=== PATIENT | female | born 1980 | race Caucasian/White ===

== ENCOUNTER 2023-06-30 17:13 | Emergency (ER) | payer MEDICAID, SELFPAY ==
[2023-06-30 17:14] VITALS: BP 109/91; PULSE 89; RESP 18; TEMP 36.7; O2SAT 100; BMI 23.6
--- NOTE | 2023-06-30 17:25 | US_ITS ---
STUDY: ABDOMINAL ULTRASOUND - RIGHT UPPER QUADRANT REASON FOR VISIT: Female, 42 years old PAIN abd TECHNIQUE: Ultrasound evaluation of the right upper quadrant was performed with real-time and static ram-scale imaging. TECHNICAL QUALITY: Limited. Examination limited by bowel gas. COMPARISON: None. FINDINGS: Liver: The liver measures 16.4 cm. There is normal echogenicity of the liver. The bile ducts are within normal limits. There is hepatic color flow. The direction of portal flow is hepatopetal. There is no demonstrated mass lesion. Gallbladder: Normal distended gallbladder. The gallbladder wall measures 7.0 mm in the region of the neck. There is a negative sonographic Hwang''s sign. Trace pericholecystic fluid. There are no gallstones. Small echogenic structure, nonmobile seen along the gallbladder wall measuring 3 mm suggestive of a polyp. Common Bile Duct (C.B.D.): The common bile duct measures 4.0 mm. Pancreas: Normal size of the head, body and tail of the pancreas. There is normal echogenicity of the pancreas. There is no demonstrated pancreatic mass or cyst. Right Kidney: Normal size of the right kidney. The right kidney measures 10.3 x 4.4 x 4.2 cm. Normal renal cortex. The right cortex measures 1.7 cm. There is no demonstrated renal mass or cyst. There is no right hydronephrosis. US/Gallbladder IMPRESSION: Thickening of gallbladder wall with trace pericholecystic fluid and negative Hwang sign, cannot exclude acalculous cholecystitis. Differential diagnosis includes liver disease or hypervolemic state such as congestive heart failure. If cholecystitis represents a clinical concern, recommend follow-up with HIDA scan. Remainder of the right upper quadrant ultrasound unremarkable. Electronically Signed: Dea Joshua MD at 19:18 [facility] ,
--- NOTE | 2023-06-30 17:26 | ED.VIS.GI ---
HPI HPI - GI History of Present Illness Chief Complaint: Abd Pain Informant: patient Narrative Narrative: Persistent epigastric comfort over last couple days. States been nauseated for the last couple weeks. No diarrhea. Normal bowel movements. No vomiting. 2 years ago reported gastric ulcer diagnosed with endoscopy. There is no bleeding issues then. She not on scheduled PPI. However last couple days tried Prilosec and Pepcid with no relief. She reports did have quiroga at noon with no worsening symptoms. Appendectomy when she was younger. No urinary symptoms. She is on the Depo shot therefore unclear on menstrual period. She states she is not sexually active therefore cannot be . Denies fever or chills. Prior similar symptoms: No PFSH PFSH Home Medications buprenorphine 12 mg-naloxone 3 mg sublingual film (Suboxone) 12 ea sublingual DAILY 09/10/16 [History Last Taken Unknown] naproxen 500 mg tablet 500 mg PO BID PRN #20 tabs 09/10/16 [Rx Last Taken Unknown] pantoprazole 40 mg tablet,delayed release 40 mg PO DAILY #30 tabs 06/30/23 [Rx Last Taken Unknown] sucralfate 1 gram tablet (Carafate) 1 g PO Q6H #60 tabs 06/30/23 [Rx Last Taken Unknown] Allergy/AdvReac Type Severity Reaction Status Date / Time No Known Allergies Allergy Verified 06/30/23 17:14 Surgical History (Updated 06/30/23 @ 17:42 by Leola Mccain) History of appendectomy Social History Smoking Status: Former smoker ROS ROS ED Constitutional Constitutional ED: Denies chills, fever(s) or sweats Eyes Eyes: Denies change in vision ENT ENT ED: Denies dysphagia or sore throat Cardiovascular Cardiovascular: Denies chest pain, leg edema, palpitations or racing heartbeat Respiratory/Chest Respiratory/Chest: Denies cough, dyspnea or dyspnea on exertion Gastrointestinal Gastrointestinal: Reports abdominal pain and nausea; Denies diarrhea or vomiting Genitourinary Genitourinary ED: Denies dysuria, hematuria or urinary frequency Musculoskeletal Musculoskeletal: Denies back pain, extremity pain or neck pain Integumentary Denies rash or wounds Neurologic Neurologic: Denies headache(s), paresthesias or weakness EXAM Physical Exam Const Vital Signs: 06/30/23 17:14 Temperature 98.1 F Temperature Source Temporal Pulse Rate 89 Respiratory Rate 18 Blood Pressure 109/91 H Blood Pressure Mean 97 Pulse Ox 100 Oxygen Delivery Method Room Air Positive well nourished and well developed General Appearance ED: well developed and NAD HEENT Reports moist mucous membranes normocephalic and atraumatic Eyes PERRL, EOMs intact bilaterally and conjunctivae normal General Eye ED: Yes normal appearance of both eyes Neck no lymphadenopathy and supple General: Negative for tenderness Chest Wall Chest: Negative for tenderness Resp normal respiratory effort and normal air movement Effort and Inspection: symmetric chest movement; Negative for respiratory distress Cardio regular rate, regular rhythm and no murmurs Peripheral Pulses: pulses 2+ throughout GI normal to inspection, nondistended, normoactive bowel sounds GI Narrative: Tenderness epigastric to right upper quadrant on exam. No guarding or rebound. Palpation: Negative for guarding or rebound tenderness present Back/Spine no CVA tenderness and no thoracic nor lumbar tenderness Extremity normal to inspection General Extremety ED: Negative for edema or tenderness General Extremity: Negative for edema Neuro oriented x3 and no sensory deficits noted Sensorium / Orientation: awake and alert Skin no rashes or lesions noted and no wounds MDM MDM MDM Narrative Medical decision making narrative: Interventions / MDM: Differential diagnosis: Gastritis Diagnosis considered but do not suspect: No clinical cholecystitis My EKG interpretation: N/A Imaging independently reviewed and interpreted by myself: Right upper quadrant ultrasound: Per radiology, small polyp, slight thickened gallbladder trace pericholecystic fluid negative sonographic signs. External documents reviewed: N/A Test considered but not ordered:N/A ED course: Nontoxic tenderness epigastrium to right upper quadrant. Abdominal labs ordered fluids Pepcid and Zofran IV. Will order right upper quadrant ultrasound for further evaluation. Reevaluation pending ultrasound results symptoms were starting to improve. Her labs normal normal recently signs. Added a GI cocktail. 1930: GI cocktail did improve symptoms. No right upper quadrant tenderness on reevaluation. Ultrasound reports slight thickened gallbladder small polyp with trace pericholecystic fluid. Clinically history does not appear for acute cholecystitis. She is able to eat quiroga yesterday with no flare of symptoms. She has history of gastric ulcers and gastritis. Will add Carafate and pantoprazole. Discussed monitoring diet but she would dairy foods and fatty foods if it flares up. She will be referred to general surgeon outpatient with strict return precautions. All questions were answered. Re-evaluation: stable Disposition discussed with patient/family/significant other: Patient Case discussed with consulting clinician: N/A This note was generated with [employer] dictation software. It may contain incorrect words, spelling, and punctuation that were not noted in checking the note before signing. Lab Data Attestation: I reviewed the patient's lab results. Labs: Laboratory Results - last 24 hr 06/30/23 17:40 WBC 7.0 RBC 3.91 L Hgb 12.0 Hct 36.2 L MCV 92.6 MCH 30.7 MCHC 33.1 RDW Std Deviation 42.3 RDW Coeff of Carol Ann 12.4 Plt Count 235 MPV 12.1 H Immature Gran % (Auto) 0.400 Neut % (Auto) 67.6 Lymph % (Auto) 23.0 [place] % (Auto) 5.7 Eos % (Auto) 2.7 Baso % (Auto) 0.6 Absolute Neuts (auto) 4.7 Absolute Lymphs (auto) 1.61 Nucleated RBC % 0 Sodium 143 Potassium 3.3 L Chloride 112 H Carbon Dioxide 27.0 Anion Gap 4 L BUN 5 L Creatinine 0.93 Estim Creat Clear Calc 60.68 Est GFR (MDRD) Af Amer 86 Est GFR (MDRD) Non-Af 71 BUN/Creatinine Ratio 5.4 L Glucose 99 Calcium 8.7 Total Bilirubin 0.20 Direct Bilirubin 0.09 AST 12 L ALT 15 Alkaline Phosphatase 58 Total Protein 6.5 Albumin 2.8 L Globulin 3.7 Lipase 24 Serum , Qual NEGATIVE Radiography Diagnostic Testing: Clinical Impression(s) from Imaging Studies Gallbladder Ultrasound 06/30/23 17:25 IMPRESSION: Thickening of gallbladder wall with trace pericholecystic fluid and negative Hwang sign, cannot exclude acalculous cholecystitis. Differential diagnosis includes liver disease or hypervolemic state such as congestive heart failure. If cholecystitis represents a clinical concern, recommend follow-up with HIDA scan. Remainder of the right upper quadrant ultrasound unremarkable. Electronically Signed: Dae Joshua MD at 19:18 EST , Discharge Plan Triage Chief Complaint: Abd Pain ED Provider: Oseas Trent Dx/Rx/DC Orders Clinical Impression: Thickening of wall of gallbladder with pericholecystic fluid, Gastritis Instructions: ED Gastritis (Adult) Prescriptions: New sucralfate [Carafate] 1 gram tablet 1 g PO Q6H Qty: 60 0RF pantoprazole 40 mg tablet,delayed release (DR/EC) 40 mg PO DAILY Qty: 30 0RF No Action buprenorphine-naloxone [Suboxone] 1 EACH film 12 ea sublingual DAILY naproxen 500 MG tablet 500 mg PO BID PRN Qty: 20 0RF Primary Care Provider: Care Physician,No Primary Referrals: Zane Eaton MD [Med Staff - Active Staff] - 1-2 Weeks Care Physician,No Primary [Primary Care Provider] - Activity Restrictions/Additional Instructions: Gallbladder ultrasound slightly thickened, there was trace pericholecystic fluid. Small polyp 3 mm. Your labs are stable white count normal. Normal liver enzymes and lipase. Take GI medicines as prescribed. Follow-up with Dr. Eaton for outpatient evaluation. Monitor your diet if symptoms worsen with fatty foods, greasy foods or dairy foods, discussed could develop into gallbladder issues. Return to ED for evaluation of any symptoms worsen uncontrolled with your medications. Disposition Disposition: Home, Self Care
[2023-06-30] MEDS: Famotidine 200 MG/20 ML MDV 20 MG in 0.9% Normal Saline (Pres. free 8 ML 300 MG IV (17:39)
[2023-06-30] MEDS: 0.9% Normal Saline (1000mL) 1,000 ML 1000 ML IV (17:39)
[2023-06-30] MEDS: Ondansetron 4 MG/2 ML Vial IV (17:40)
[2023-06-30 17:49] LABS: Absolute Lymphocyte Count 1.61 X10^3/uL (0.83-4.51); Absolute Neutrophil Count 4.7 X10^3/uL (2.0-7.7); Basophil# 0.04 X10^3/uL; Basophil% 0.6 % (0-1); Eosinophil# 0.19 X10^3/uL; Eosinophils% 2.7 % (0-5); Hematocrit 36.2 % (37-47); Lymphocyte # 1.61 X10^3/ul (0.83-4.51); Mean Corp Hgb Conc 33.1 g/dL (32-36); Mean Corpuscular Hgb 30.7 pg (27.0-32.0); Mean Corpuscular Volume 92.6 fL (81-99); Mean Platelet Vol. 12.1 fl (6.2-12.0); Monocyte% 5.7 % (0-10); NRBC Flagged by Analyzer 0 % (0-5); Neutrophil # 4.73 X10^3/uL (2.7-7.7); Neutrophil % 67.6 % (47-70); Platelet Count 235 K/mm3 (150-450); RBC Distribution Width CV 12.4 % (11.6-14.6); RBC Distribution Width SD 42.3 fl (35.1-43.9); Red Blood Count 3.91 M/mm3 (4.2-5.4)
[2023-06-30 18:00] LABS: Internal QC Validated? YES +Cl - CLEAR BKGD; Pregnancy, Serum, hCG Quali. NEGATIVE Negative
[2023-06-30 18:08] LABS: AST(SGOT) 12 U/L (15-37); Alanine Aminotransfer ALT/SGPT 15 U/L (13-56); Albumin, Serum 2.8 g/dL (3.2-5.0); Alkaline Phosphatase 58 U/L (45-117); Anion Gap 4 (5-15); BUN 5 mg/dL (7-18); BUN/Creat Ratio 5.4 RATIO (10-20); Bilirubin, Direct 0.09 mg/dL (0.00-0.30); Calcium,Total 8.7 mg/dL (8.5-10.1); Chloride 112 mmol/L (98-107); Creatinine, Serum 0.93 mg/dL (0.55-1.02); EST Glomerular Filtration Rate 71 mL/min (>60); Est Glom Filt Rate - Afr Amer 86 mL/min (>60); Estimated Creatinine Clearance 60.68 ml/min; Globulin 3.7 g/dL (2.2-4.2); Glucose 99 mg/dL (74-106); Lipase 24 U/L (13-75); Potassium 3.3 mmol/L (3.5-5.1); Protein, Total 6.5 g/dL (6.4-8.2); Sodium Level 143 mmol/L (136-145)
[2023-06-30] MEDS: Mag Hydrox/Al Hydrox/Simeth 30 ML UDC PO (18:57)
== END 2023-06-30 19:54 | disposition home or self-care (01) ==
PROVIDERS: Emergency Provider Emergency Medicine; Visit Provider Emergency Medicine
DX: K82.8 Other specified diseases of gallbladder (principal); K29.70 Gastritis, unspecified, without bleeding; Z87.891 Personal history of nicotine dependence
CPT/HCPCS: 76705; 80048; 80076; 83690; 84703; 85025; 96361; 96374; 96375; 99283; J2405; J3490 ×2; J7030

== ENCOUNTER 2023-07-01 12:48 | Observation (INO) | payer MEDICAID, SELFPAY ==
[2023-07-01 12:49] VITALS: BP 115/74; PULSE 65; RESP 14; TEMP 36.2; O2SAT 98; BMI 23.6
--- OUTSIDE RECORDS SUMMARY | 2023-07-01 13:59 | XMS RPT_ITS | CCD ---
Author Name Unknown Address [facility] [id number] [place] [address] Organization [facility] Care Team Providers Care Associate Material Handler Name Role Phone DUANE GOYAL DO Attending Unavailab HUMBERTO Ellis Primary Care Unavailable DR HUMBERTO GOLDBERG DO Primary Care Physician ([id number] Medications Current Medications Medication Drug Class(es) Dates Sig (Normalized) Sig (Original) acyclovir 400 mg oral tablet (1 source) Herpesvirus Nucleoside Analog DNA Polymerase Inhibitor, Herpes Simplex Virus Nucleoside Analog DNA Polymerase Inhibitor, Herpes Zoster Virus Nucleoside Analog DNA Polymerase Inhibitor Start: 09-29-2019 acyclovir 400 mg oral tablet Dose : 400 mg = 1 tab(s), Oral, BID, Pt needs appointment for further refills., # 60 tab(s), 0 Refill(s), [facility]: [facility], Recurrent cold sores, 159, cm, 08/16/19 14:09:00 EST, Height, kg, 08/16/19 14:09:00 EST, Dosing Weight Start Date: 09/29/19 Status: Ordered buprenorphine 2 mg / naloxone 0.5 mg sublingual film (1 source) Partial Opioid Agonist, Opioid Antagonist Start: 06-01-2019 Suboxone 2 mg-0.[address] ONE film ON THE TONGUE everyday Start Date: 06/01/19 Status: Ordered Completed/Discontinued Medications Medication Drug Class(es) Dates Sig (Normalized) Sig (Original) Depo-Provera Contraceptive 150 mg/mL intramuscular suspension (1 source) Start: 12-02-2021 inject 1 mL by intramuscular injection every three months Depo-Provera Contraceptive 150 mg/mL intramuscular suspension Dose : 150 mg = 1 mL, Intramuscular, q3mo, # 1 mL, 0 Refill(s) Start Date: 12/02/21 Status: Ordered famotidine 20 mg oral tablet (1 source) Histamine-2 Receptor Antagonist Start: 12-02-2021 End: 01-01-2022 Pepcid 20 mg oral tablet Dose : 20 mg = 1 tab(s), Oral, BID, # 60 tab(s), 0 Refill(s), [facility]: [facility] 160, cm, 12/02/21 14:35:00 EDT, Height Start Date: 12/02/21 Stop Date: 01/01/22 Status: Ordered omeprazole 40 mg delayed release oral capsule (1 source) Proton Pump Inhibitor Start: 06-11-2022 End: 09-09-2022 omeprazole 40 mg oral delayed release capsule Dose : 40 mg = 1 cap(s), Oral, qDay, # 90 cap(s), 0 Refill(s), [facility]: [facility] #[id number], 155, cm, 06/11/22 16:21:00 EST, Height, kg, 06/11/22 16:21:00 EST, Dosing Weight Start Date: 06/11/22 Stop Date: 09/09/22 Status: Ordered sucralfate 1000 mg oral tablet (1 source) Aluminum Complex Start: 06-11-2022 End: 08-10-2022 sucralfate 1 g oral tablet Dose : 1 gram(s) = 1 tab(s), Oral, QID, # 120 tab(s), 1 Refill(s), Pharmacy: [id number], Epigastric abdominal pain History of gastric ulcer, 155, cm, 06/11/22 16:21:00 EST, Height Start Date: 06/11/22 Stop Date: 08/10/22 Status: Ordered Problems Problem Classification Problem Date Documented Da te Episodic/Chronic Abdominal pain (1 source) Epigastric pain 09-28-2020 Episodic Esophageal disorders (1 source) Gastroesophageal reflux disease 09-28-2020 Chronic Other infections; including parasitic (1 source) History of sexually transmitted disease 09-28-2020 Episodic Substance-related disorders (1 source) History of drug abuse 09-28-2020 Chronic Viral infection (1 source) Herpes labialis 09-28-2020 Episodic Results Test Name Value Interpretation Reference Range Facil ity Encounters Encounter Date Encounter Type Care Provider Facility Start: 06-30-2023 End: 06-30-2023 Patient encounter procedure DUANEMARTHA GOYAL DO [facility] Start: 05-19-2023 ambulatory DUANE GOYAL DO F acility:B Procedures Date Procedure Procedure Detail Performing Clinician Appendectomy DUANE Figueredo DO Deliveries by (finding) DUANE GOYAL DO Payers Date Payer Category Payer Private Health Insurance [id number] 1980 Unknown [id number] Social History Date Type Detail Facility Start: 06-11-2022 Tobacco smoking status Ex-smoker (fi nding) [facility] Sex Assigned At Female [facility] Clinical Note 06-30-2023 Note Date & Type Note Facility 06-30-2023 Note ORIGINAL EXAMINATION: BONE DENSITOMETRY 06/30/2023 11:29 am TECHNIQUE: A bone density dual x-ray absorptiometry (DEXA) scan was performed of the lumbar spine and left hip on a Hologic system. COMPARISON: None. HISTORY: ORDERING SYSTEM PROVIDED HISTORY: Reason for Exam: SCREENING FINDINGS: LEFT HIP: The bone mineral density in the total hip is measured at 0.747 g/cm2 corresponding to a T-score of -1.6 and a Z-score of -1.4. This is within the below average/osteopenic range by WHO criteria. The bone mineral density of the femoral neck is measured at 0.610 g/cm2 corresponding to a T-score of -2.2 and a Z-score of -1.8. This is within the below average/osteopenic range by WHO criteria. Lumbar spine: The bone mineral density of the left 1/3 radius is measured at 0.768 g/cm2 corresponding to a T-score of -2.5 and a Z-score of -2.3. This is within the below average/osteoporotic range by WHO criteria. IMPRESSION: Below age expected average bone density/osteoporosis by WHO criteria. Interpreted by: Alycia Foster Preliminary Report By: Alycia Foster Electronically signed By Alycia Foster Dictated Date: 06/30/2023 12:00:21 PM Prelim Date: 06/30/2023 12:03:24 PM Sign Date: 06/30/2023 12:03:24 PM Ordering Provider: DUANE GOYAL [facility] Clinical Note 11-20-2020 Note Date & Type Note Facility 11-20-2020 Note HNO ID: [id number] Author: Adela Self RN Service: Gastroenterology Author Type: Registered Nurse Type: Nursing Progress Note Filed: 11/20/2020 7:43 AM Note Text: Patient states readiness for discharge. Assisted with dressing. [facility] Clinical Note 11-20-2020 Note Date & Type Note Facility 11-20-2020 Note HNO ID: [id number] Author: Adela Self RN Service: Gastroenterology Author Type: Registered Nurse Type: Nursing Progress Note Filed: 11/20/2020 7:42 AM Note Text: Discharge instructions reviewed with patient. States understanding [facility] Clinical Note 11-20-2020 Note Date & Type Note Facility 11-20-2020 Note HNO ID: [id number] Author: Adela Self RN Service: Gastroenterology Author Type: Registered Nurse Type: Nursing Progress Note Filed: 11/20/2020 8:11 AM Note Text: Physician at bedside [facility] Progress note 10-26-2020 Note Date & Type Note Facility 10-26-2020 Note HNO ID: [id number] Author: Sadaf Looney (Pa) Service: ? Author Type: Physician Towel Rolling Machine Operator Type: Progress Notes Filed: 10/26/2020 2:51 PM Note Text: HPI: Radha Silveira is a 40 year old female with PMHx positive for IBS, depression, who presents for GERD and Abdominal Pain. Has had GERD symptoms for the past year, been on Prilosec 20 mg for the past year. Recently increased dosage and has noticed some improvement and still having symptoms. Takes ibuprofen a few times per week . Takes it early in the morning to try to alleviate abdominal pain. Epigastric pain is intermittent, worse when sleeping or overeating. Admits to chronic constipation for many years . BMs are one every three days, hard, no blood. Takes MoM with some relief. Denies family hx of colon CA Works at [employer] Has 5 tattoos, one unprofessional, tested for Hep C in the past and was negative Rare EtOH Former smoker Denies illicit drugs Record Review: [facility] records reviewed PAST MEDICAL HISTORY Diagnosis Date - Depressive disorder, not elsewhere classified - Diarrhea - Irritable bowel syndrome - Other and unspecified disc disorder of unspecified region Intervertebral disc disorders,BULDGING DISC - PMH - PAST MEDICAL HISTORY OF 12/17 bacterial infection in eye PAST SURGICAL HISTORY Procedure Laterality Date - APPENDECTOMY 1994 - DELIVERY ONLY 2002 , low cervical - DELIVERY ONLY 2005 , low cervical Allergies: ALLERGIES Allergen Reactions - Seasonal [Other] Medications: buprenorphine-naloxone (SUBOXONE) 2-0.5 mg film DISSOLVE ONE fild UNDER THE TONGUE EVERY DAY omeprazole (PRILOSEC) 40 mg capsule Take 40 mg by mouth once daily. valacyclovir HCl (VALTREX ORAL) Take by mouth. medroxyprogesterone acet(DEPO-PROVERA 150 MG/ML IM SUSP) Use as directed. FAMILY HISTORY Problem Relation Age of Onset - Cancer Father LUNG - Alcohol/Drug Maternal Grandmother ALCOHOLIC - Cancer Paternal Grandmother - Colon Cancer No Family History Employer And Job Title: [employer] ([employer]) Years Of Education Completed: Not specified Marital Status: with 1 child Social History Tobacco Use - Smoking status: Former Smoker Packs/day: 0.50 Years: 5.00 Pack years: 2.50 Types: Cigarettes - Smokeless tobacco: Never Used Substance Use Topics - Alcohol use: Not on file Comment: RARELY BUT NOT WHILE - Drug use: Never Review of Systems: Review of Systems Constitutional: Negative for chills, diaphoresis, fatigue, fever and unexpected weight change. Gastrointestinal: Positive for abdominal distention, abdominal pain and constipation. Negative for anal bleeding, blood in stool, diarrhea, nausea, rectal pain and vomiting. All other systems reviewed and are negative. Where do you currently reside? Independently Are you taking any blood thinners? No Physical Examination: BP 102/60 Pulse 68 Ht 156.2 cm (5' 1.5 ) Wt 64.4 kg (142 lb) BMI 26.40 kg/m? Physical Exam Constitutional: General: She is not in acute distress. Appearance: She is not diaphoretic. HENT: Head: Normocephalic and atraumatic. Eyes: Conjunctiva/sclera: Conjunctivae normal. Pupils: Pupils are equal, round, and reactive to light. Cardiovascular: Rate and Rhythm: Normal rate and regular rhythm. Heart sounds: Normal heart sounds. No murmur heard. No friction rub. No gallop. Pulmonary: Effort: Pulmonary effort is normal. No respiratory distress. Breath sounds: Normal breath sounds. No wheezing or rales. Chest: Chest wall: No tenderness. Abdominal: General: Bowel sounds are normal. There is no distension. Palpations: Abdomen is soft. There is no mass. Tenderness: There is no abdominal tenderness. There is no guarding or rebound. Musculoskeletal: General: Normal range of motion. Cervical back: Normal range of motion and neck supple. Skin: General: Skin is warm and dry. Neurological: Mental Status: She is alert and oriented to person, place, and time. Psychiatric: Mood and Affect: Mood and affect normal. Assessment/Plan (K21.9) Gastroesophageal reflux disease, unspecified whether esophagitis present (primary encounter diagnosis) (K58.1) Irritable bowel syndrome with constipation 1. Gastroesophageal reflux disease, unspecified whether esophagitis present - EGD; Future - Discussed NSAID cessation and reflux precautions in detail - Will plan on continuing Prilosec daily for now, but may need change in PPI/meds after bx findings from EGD - EGD to r/o PUD, H. Pylori, uncontrolled GERD, metaplasia Recommend high protein, high fiber diet. Promotion of salivation through oral lozenges/chewing gum Drink plenty of water Avoid NSAIDs (such as Advil, Ibuprofen, Excedrin, Mobic), tobacco, alcohol, carbonated beverages, caffeine, chocolate, tomato based sauces, spicy/fatty foods, and peppermint Avoid eating less zak (more content not included)... [facility] Evaluation + Plan note Note Date & Type Note Facility Evaluation + Plan note Future Appointments Appointment Date:07/07/2023 02:00:00 PM Scheduled Provider:WHITNEY SANTANA Location:[facility] Appointment Type:[facility] Hospital course Narrative Note Date & Type Note Facility Hospital course Narrative No data available for this section [facility] Hospital Discharge instructions Note Date & Type Note Facility Hospital Discharge instructions No data available for this section [facility] Progress note Note Date & Type Note Facility Progress note No data available for this section [facility] Summary Purpose Family History No Family History Records FoundNo Family History Records Found No data available for this section Advance Directives No Advanced Directives Records FoundNo Advanced Directives Records Found Additional Source Comments INFORMATION SOURCE (unrecogn ized section and content) DATE CREATED AUTHOR AUTHOR'S ORGANIZ ATION 05/20/2023 [facility] ([place]) Patient Care team informatio n (unrecognized section and content) Care Team Personnel Name: HUMBERTO GOLDBERG DO Position: P4 Physician - Primary Care Member Role: Primary Care Physician Address: Address: [address] [facility] [place], [place] [id number] [place] [address] Care Team Related Persons Name: STEPHY SIMPSON FOR RECORDS PERTAINING TO PATIENTS WHO ARE OR HAVE BEEN ENROLLED IN A CHEMICAL DEPENDENCY/SUBSTANCEABUSE PROGRAM, SOME INFORMATION MAY BE OMITTED. This clinical summary was aggregated from multiple sources. Caution should be exercised in using it in the provision of clinical care. This summary normalizes information from multiple sources, and as a consequence, information in this document may materially change the coding, format and clinical context of patient data. In addition, data may be omitted in some cases. CLINICAL DECISIONS SHOULD BE BASED ON THE PRIMARY CLINICAL RECORDS. [facility]. provides no warranty or guarantee of the accuracy or completeness of information in this document.
[2023-07-01] MEDS: Ketorolac 15 MG/ML Vial IV ×2 (14:08→20:47)
[2023-07-01] MEDS: Ondansetron 4 MG/2 ML Vial IV (14:09)
[2023-07-01 14:17] LABS: Absolute Lymphocyte Count 1.45 X10^3/uL (0.83-4.51); Absolute Neutrophil Count 3.8 X10^3/uL (2.0-7.7); Basophil# 0.04 X10^3/uL; Basophil% 0.7 % (0-1); Eosinophil# 0.11 X10^3/uL; Eosinophils% 1.9 % (0-5); Lymphocyte # 1.45 X10^3/ul (0.83-4.51); Lymphocyte % 25.6 % (19-41); Mean Corp Hgb Conc 34.4 g/dL (32-36); Mean Corpuscular Hgb 31.7 pg (27.0-32.0); Mean Corpuscular Volume 92.2 fL (81-99); Mean Platelet Vol. 11.6 fl (6.2-12.0); Monocyte# 0.31 X10^3/uL; Monocyte% 5.5 % (0-10); NRBC Flagged by Analyzer 0 % (0-5); Neutrophil # 3.75 X10^3/uL (2.7-7.7); Neutrophil % 66.1 % (47-70); Platelet Count 223 K/mm3 (150-450); RBC Distribution Width CV 12.4 % (11.6-14.6); RBC Distribution Width SD 41.8 fl (35.1-43.9); Red Blood Count 3.47 M/mm3 (4.2-5.4); White Blood Count 5.7 K/mm3 (4.4-11.0)
[2023-07-01 14:45] LABS: AST(SGOT) 11 U/L (15-37); Alanine Aminotransfer ALT/SGPT 14 U/L (13-56); Albumin, Serum 2.6 g/dL (3.2-5.0); Alkaline Phosphatase 51 U/L (45-117); Anion Gap 2 (5-15); BUN 4 mg/dL (7-18); BUN/Creat Ratio 5.2 RATIO (10-20); Bilirubin, Direct < 0.05 mg/dL (0.00-0.30); Calcium,Total 8.5 mg/dL (8.5-10.1); Chloride 116 mmol/L (98-107); Creatinine, Serum 0.77 mg/dL (0.55-1.02); EST Glomerular Filtration Rate 88 mL/min (>60); Est Glom Filt Rate - Afr Amer 107 mL/min (>60); Estimated Creatinine Clearance 73.29 ml/min; Globulin 3.3 g/dL (2.2-4.2); Glucose 110 mg/dL (74-106); Lipase 26 U/L (13-75); Potassium 3.7 mmol/L (3.5-5.1); Protein, Total 5.9 g/dL (6.4-8.2); Sodium Level 144 mmol/L (136-145)
--- NOTE | 2023-07-01 15:36 | CT_ITS ---
STUDY: CT ABDOMEN AND PELVIS WITH CONTRAST REASON FOR EXAM: Female, 42 years old. ruq pain RADIATION DOSAGE (If Supplied By Facility): CTDIvol = ( 10.48 ) mGy, DLP = ( 353.20 ) mGycm TECHNIQUE: Transaxial images were obtained from the dome of the diaphragm to the symphysis pubis without oral contrast. IV 100mL Isovue-370 was administered. Sagittal and coronal images were reconstructed. Individualized dose optimization techniques were used for this CT. COMPARISON: None. FINDINGS: Multinodular infiltrate in the left lower lobe.. The visualized portions of the heart are within normal limits. The liver is enlarged and slightly heterogeneous appearance with periportal fluid consistent with nonspecific hepatitis. No mass or bile duct dilatation.. There are no calcified stones in the gallbladder. There is mild pericholecystic fluid and thickening of the wall. If concern for acute cholecystitis HIDA scan would be helpful for further evaluation . Normal spleen. Normal pancreas. Normal bilateral adrenal glands. Normal right kidney. Normal left kidney. Normal visualized stomach. Normal small intestine. Normal colon. Appendix not visualized consistent with appendectomy.. Normal abdominal aorta. Normal inferior vena cava. Normal retroperitoneum. Normal urinary bladder. Small right ovarian cyst is noted. There is prominence of the pelvic vasculature bilaterally consistent with nonspecific pelvic congestive type changes. Normal abdominal wall. Normal osseous structures. CT/Abdomen/Pelvis W IV Cont ONLY IMPRESSION: Multinodular infiltrate left lower lobe possibly inflammatory. CT of the chest recommended for more definitive evaluation. Findings consistent with nonspecific hepatocellular disease or hepatitis Thick-walled gallbladder without calcified stones and mild pericholecystic fluid. If concern for acalculous cholecystitis HIDA scan with CCK stimulation recommended Electronically Signed: Cesar Gupta MD at 16:53 EST ,
--- NOTE | 2023-07-01 16:33 | ED.VIS.GI ---
HPI HPI - GI History of Present Illness Chief Complaint: Abd Pain Narrative Narrative: This is a 42-year-old female presenting with abdominal pain. She states that she has had epigastric and right upper quadrant abdominal pain for the last few days. It initially started about a week ago with some nausea and progressed. Patient does report that on Thursday she had some meatballs with marinara sauce and since that is more pain. She describes this as not typical of her GERD symptoms. She does have history of gastric ulcers and GERD. She is self treating herself right now with omeprazole since she started having the symptoms and she also uses Pepcid. Patient denies any black or bloody stools. She denies fevers or chills. She states the pain is fairly constant. She was seen yesterday in the ER and had blood work which was fairly normal and a right upper quadrant ultrasound which showed some fluid around the gallbladder but was not consistent with acute cholecystitis. Patient was given a GI cocktail in the ER and Carafate for home although she states that she now has more constant pain. The only she is has been able to eat is a cookie. She states she does not want any narcotic pain medication because she is in recovery. She states she was post to follow-up with general surgery but cannot get an appointment on the and she is concerned she will be in pain till then. PFSH PFSH Home Medications buprenorphine 12 mg-naloxone 3 mg sublingual film (Suboxone) 12 ea sublingual DAILY 09/10/16 [History Last Taken Unknown] naproxen 500 mg tablet 500 mg PO BID PRN #20 tabs 09/10/16 [Rx Last Taken Unknown] pantoprazole 40 mg tablet,delayed release 40 mg PO DAILY #30 tabs 06/30/23 [Rx Last Taken Unknown] sucralfate 1 gram tablet (Carafate) 1 g PO Q6H #60 tabs 06/30/23 [Rx Last Taken Unknown] Allergy/AdvReac Type Severity Reaction Status Date / Time No Known Allergies Allergy Verified 07/01/23 12:49 Surgical History History of appendectomy Social History Smoking Status: Former smoker ROS ROS ED Constitutional Constitutional ED: Denies chills, fever(s) or sweats Eyes Eyes: Denies blurry vision or change in vision ENT ENT ED: Denies ear pain or sore throat Cardiovascular Cardiovascular: Denies chest pain, palpitations or racing heartbeat Respiratory/Chest Respiratory/Chest: Denies cough, dyspnea or sputum Gastrointestinal Gastrointestinal: Reports abdominal pain, nausea and vomiting; Denies constipation or diarrhea Genitourinary Genitourinary ED: Denies dysuria, hematuria or urinary frequency Musculoskeletal Musculoskeletal: Denies arthralgias, myalgias or neck pain Integumentary Denies abscess, Abrasions or rash Neurologic Neurologic: Denies headache(s), paresthesias or weakness Psychiatric Psychiatric: Denies anxiety, depression, suicidal ideation or suicidal thoughts Endocrine Endocrinology: Denies polydipsia or polyuria EXAM Physical Exam Const Vital Signs: 07/01/23 12:49 Temperature 97.2 F L Temperature Source Temporal Pulse Rate 65 Respiratory Rate 14 Blood Pressure 115/74 Blood Pressure Mean 87 Pulse Ox 98 Oxygen Delivery Method Room Air Positive well nourished General Appearance ED: NAD; Negative for pallor HEENT Reports moist mucous membranes normocephalic Eyes PERRL and EOMs intact bilaterally Resp normal respiratory effort and clear to auscultation bilaterally Auscultation: Negative for rales, rhonchi or wheezes Cardio regular rate and regular rhythm GI non-tender Palpation: tender RUQ and Hwang's sign Extremity full ROM Neuro CN's II-XII intact bilaterally Sensorium / Orientation: alert Psych mental status grossly normal and thought process normal Skin no wounds General Skin Exam: Negative for jaundice or pallor MDM MDM MDM Narrative Medical decision making narrative: With epigastric and right upper quadrant pain. Differential includes acute cholecystitis, acute cholelithiasis, choledocholithiasis, GERD, gastritis, peptic ulcer disease, pancreatitis, dehydration, anemia, electro abnormalities, upper GI bleed, hepatitis. CBC was obtained to assess white blood cell count, hemoglobin, platelets. CMP to assess liver function, renal function electrolytes, glucose, anion gap. Lipase to assess for pancreatitis. Medicated with Toradol which did provide relief. CBC and CMP unremarkable. Lipase negative. Case reviewed and discussed with Dr. Boone as the patient had an ultrasound yesterday and workup. He recommended a CT with IV contrast. CT with IV contrast was performed and patient now has cholecystic fluid around the gallbladder. Concern for possible hepatitis. Gallbladder wall is thick. There is also an infiltrate noted in the left lower lobe, however the patient is not short of breath or having fevers or chills. She is not coughing. After CT was performed I discussed with Dr. Boone who recommended adding on ESR, CRP, acute hepatitis profile. She is to be kept n.p.o. after midnight. I recommended obtaining an MRCP as he can see a pancreatic duct which would normally be able to see and as well as a HIDA scan. Lab Data Attestation: I reviewed the patient's lab results. Labs: Laboratory Results - last 24 hr 07/01/23 14:10 WBC 5.7 RBC 3.47 L Hgb 11.0 L Hct 32.0 L MCV 92.2 MCH 31.7 MCHC 34.4 RDW Std Deviation 41.8 RDW Coeff of Carol Ann 12.4 Plt Count 223 MPV 11.6 Immature Gran % (Auto) 0.200 Neut % (Auto) 66.1 Lymph % (Auto) 25.6 Elmore % (Auto) 5.5 Eos % (Auto) 1.9 Baso % (Auto) 0.7 Absolute Neuts (auto) 3.8 Absolute Lymphs (auto) 1.45 Nucleated RBC % 0 Sodium 144 Potassium 3.7 Chloride 116 H Carbon Dioxide 26.0 Anion Gap 2 L BUN 4 L Creatinine 0.77 Estim Creat Clear Calc 73.29 Est GFR (MDRD) Af Amer 107 Est GFR (MDRD) Non-Af 88 BUN/Creatinine Ratio 5.2 L Glucose 110 H Calcium 8.5 Total Bilirubin 0.20 Direct Bilirubin < 0.05 AST 11 L ALT 14 Alkaline Phosphatase 51 Total Protein 5.9 L Albumin 2.6 L Globulin 3.3 Lipase 26 Radiography Diagnostic Testing: Clinical Impression(s) from Imaging Studies Abdomen/Pelvis CT 07/01/23 15:36 IMPRESSION: Multinodular infiltrate left lower lobe possibly inflammatory. CT of the chest recommended for more definitive evaluation. Findings consistent with nonspecific hepatocellular disease or hepatitis Thick-walled gallbladder without calcified stones and mild pericholecystic fluid. If concern for acalculous cholecystitis HIDA scan with CCK stimulation recommended Electronically Signed: Cesar Gupta MD at 16:53 EST , Discharge Plan Triage Chief Complaint: Abd Pain ED Provider: Tanvir Burgess Dx/Rx/DC Orders Prescriptions: No Action buprenorphine-naloxone [Suboxone] 1 EACH film 12 ea sublingual DAILY naproxen 500 MG tablet 500 mg PO BID PRN Qty: 20 0RF sucralfate [Carafate] 1 gram tablet 1 g PO Q6H Qty: 60 0RF pantoprazole 40 mg tablet,delayed release (DR/EC) 40 mg PO DAILY Qty: 30 0RF Primary Care Provider: Care Physician,No Primary Referrals: Care Physician,No Primary [Primary Care Provider] -
--- NOTE | 2023-07-01 17:08 | MRI_ITS ---
MRCP without contrast 07/01/2023 6:32 PM COMPARISON: CT same date; ultrasound 06/30/2023 CLINICAL HISTORY: RUQ pain, emesis, please compare to ultrasound TECHNIQUE: Multiplanar and multisequence MR images of the abdomen were obtained with MRCP sequence. Three-dimensional post-processing reconstructions were performed. FINDINGS: Liver: There is periportal hyperintensity on T2-weighted images and indicating periportal edema.. Smooth contour. Gallbladder: There is mild gallbladder wall edema and mild pericholecystic fluid. No obvious obstructing T2 dark stone, mass or stricture. Bile Ducts: Periportal hyperintensity on T2-weighted images. No intra or extrahepatic biliary duct dilatation. Pancreas: Unremarkable Spleen: Unremarkable Adrenal Glands: Unremarkable Kidneys: Unremarkable GI Tract: Unremarkable Lymphadenopathy: Absent Ascites: Absent Bones: No suspicious lesions MRI/MRCP Abdomen without Contrast IMPRESSION: Findings equivocal for acute acalculous cholecystitis. Consider nuclear medicine HIDA scan. Periportal edema of unknown significance. Electronically Signed: Travon Flores MD at 20:21 [facility] ,
--- NOTE | 2023-07-01 17:08 | NURSING ---
MED SURG ANALIA ABD PAIN
--- OUTSIDE RECORDS SUMMARY | 2023-07-01 17:27 | XMS RPT_ITS | CCD ---
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, cm, 08/16/19 [...] 90 cap(s), 0 Refill(s), [facility]: [facility] #[id number], 155, cm, 06/11/22 16:21:00 EST, Height, kg, 06/11/22 16:21:00 EST, Dosing Weight Start Date: 06/11/22 Stop Date: 09/09/22 Status: Ordered sucralfate 1000 mg oral tablet (1 source) Aluminum Complex Start: 06-11-2022 End: 08-10-2022 sucralfate 1 g oral tablet Dose : 1 gram(s) = 1 tab(s), Oral, QID, # 120 tab(s), 1 Refill(s), Pharmacy: [facility] #[id number], Epigastric abdominal pain History of gastric ulcer, [...] 06-30-2023 Patient encounter procedure DUANEMARTHA GOYAL DO [facility] Start: 05-19-2023 ambulatory DUANE GOYAL DO F acility:B Procedures Date Procedure Procedure Detail Performing Clinician Appendectomy DUANE Figueredo DO Deliveries by (finding) DUANE GOYAL DO Payers Date Payer Category Payer Private Health Insurance [id number] 1980 Unknown [id number] Social History Date Type Detail Facility Start: 06-11-2022 Tobacco smoking status Ex-smoker (fi nding) [facility] Sex Assigned At Female [facility] Clinical Note 06-30-2023 Note Date & Type [...] 06/30/2023 12:03:24 PM Ordering Provider: DUANE GOYAL [facility] Clinical Note 11-20-2020 Note Date & Type Note Facility 11-20-2020 Note HNO ID: [id number] Author: Adela Self RN Service: Gastroenterology Author Type: Registered Nurse Type: Nursing Progress Note Filed: 11/20/2020 7:43 AM Note Text: Patient states readiness for discharge. Assisted with dressing. [facility] Clinical Note 11-20-2020 Note Date & Type Note Facility 11-20-2020 Note HNO ID: [id number] Author: Adela Self RN Service: Gastroenterology Author Type: Registered Nurse Type: Nursing Progress Note Filed: 11/20/2020 7:42 AM Note Text: Discharge instructions reviewed with patient. States understanding [facility] Clinical Note 11-20-2020 Note Date & Type Note Facility 11-20-2020 Note HNO ID: [id number] Author: Adela Self RN Service: Gastroenterology Author Type: Registered Nurse Type: Nursing Progress Note Filed: 11/20/2020 8:11 AM Note Text: Physician at bedside [facility] Progress note 10-26-2020 Note Date & Type Note Facility 10-26-2020 Note HNO ID: [id number] Author: Sadaf Looney ([place]) Service: ? 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 [facility] Evaluation + Plan note Note Date & Type Note Facility Evaluation + Plan note Future Appointments Appointment Date:07/07/2023 02:00:00 PM Scheduled Provider:WHITNEY SANTANA Location:[facility] Appointment Type:[facility] course Narrative Note Date & Type Note Facility Hospital course Narrative No data available for this section [facility] Hospital Discharge instructions Note Date & Type Note Facility Hospital Discharge instructions No data available for this section [facility] Progress note Note Date & Type Note Facility Progress note No data available for this section [facility] Summary Purpose Family History No Family History Records FoundNo Family History Records Found No data available for this section Advance Directives No Advanced Directives Records FoundNo Advanced Directives Records Found Additional Source Comments INFORMATION SOURCE (unrecogn ized section and content) DATE CREATED AUTHOR AUTHOR'S ORGANIZ ATION 05/20/2023 [facility] ([place]) Patient Care team informatio n (unrecognized section and content) Care Team Personnel Name: HUMBERTO GOLDBERG DO Position: P4 Physician - Primary Care Member Role: Primary Care Physician Address: Address: [address] [facility] [address] [place], [place] [id number] [place] [address] Care Team Related Persons Name: STEPHY SIMPSON [...] BE BASED ON THE PRIMARY CLINICAL RECORDS. [employer] [facility]. provides no warranty or guarantee of the accuracy or completeness of information in this document.
--- OUTSIDE RECORDS SUMMARY | 2023-07-01 17:28 | XMS RPT_ITS | CCD ---
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, cm, 08/16/19 [...] 90 cap(s), 0 Refill(s), [facility]: [facility] #[id number], 155, cm, 06/11/22 16:21:00 EST, Height, kg, 06/11/22 16:21:00 EST, Dosing Weight Start Date: 06/11/22 Stop Date: 09/09/22 Status: Ordered sucralfate 1000 mg oral tablet (1 source) Aluminum Complex Start: 06-11-2022 End: 08-10-2022 sucralfate 1 g oral tablet Dose : 1 gram(s) = 1 tab(s), Oral, QID, # 120 tab(s), 1 Refill(s), Pharmacy: [facility] #[id number], Epigastric abdominal pain History of gastric ulcer, [...] 06-30-2023 Patient encounter procedure DUANEMARTHA GOYAL DO [facility] Start: 05-19-2023 ambulatory DUANE GOYAL DO F acility:B Procedures Date Procedure Procedure Detail Performing Clinician Appendectomy DUANE Figueredo DO Deliveries by (finding) DUANE GOYAL DO Payers Date Payer Category Payer Private Health Insurance [id number] 1980 Unknown [id number] Social History Date Type Detail Facility Start: 06-11-2022 Tobacco smoking status Ex-smoker (fi nding) [facility] Sex Assigned At Female [facility] Clinical Note 06-30-2023 Note Date & [...] 06/30/2023 12:03:24 PM Ordering Provider: DUANE GOYAL [facility] Clinical Note 11-20-2020 Note Date & Type Note Facility 11-20-2020 Note HNO ID: [id number] Author: Adela Self RN Service: Gastroenterology Author Type: Registered Nurse Type: Nursing Progress Note Filed: 11/20/2020 7:43 AM Note Text: Patient states readiness for discharge. Assisted with dressing. [facility] Clinical Note 11-20-2020 Note Date & Type Note Facility 11-20-2020 Note HNO ID: [id number] Author: Adela Self RN Service: Gastroenterology Author Type: Registered Nurse Type: Nursing Progress Note Filed: 11/20/2020 7:42 AM Note Text: Discharge instructions reviewed with patient. States understanding [facility] Clinical Note 11-20-2020 Note Date & Type Note Facility 11-20-2020 Note HNO ID: [id number] Author: Adela Self RN Service: Gastroenterology Author Type: Registered Nurse Type: Nursing Progress Note Filed: 11/20/2020 8:11 AM Note Text: Physician at bedside [facility] Progress note 10-26-2020 Note Date & Type Note Facility 10-26-2020 Note HNO ID: [id number] Author: Sadaf Looney ([place]) Service: ? 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 [facility] Evaluation + Plan note Note Date & Type Note Facility Evaluation + Plan note Future Appointments Appointment Date:07/07/2023 02:00:00 PM Scheduled Provider:WHITNEY SANTANA Location:[facility] Appointment Type:[facility] course Narrative Note Date & Type Note Facility Hospital course Narrative No data available for this section [facility] Hospital Discharge instructions Note Date & Type Note Facility Hospital Discharge instructions No data available for this section [facility] Progress note Note Date & Type Note Facility Progress note No data available for this section [facility] Summary Purpose Family History No Family History Records FoundNo Family History Records Found No data available for this section Advance Directives No Advanced Directives Records FoundNo Advanced Directives Records Found Additional Source Comments INFORMATION SOURCE (unrecogn ized section and content) DATE CREATED AUTHOR AUTHOR'S ORGANIZ ATION 05/20/2023 [facility] ([place]) Patient Care team informatio n (unrecognized section and content) Care Team Personnel Name: HUMBERTO GOLDBERG DO Position: P4 Physician - Primary Care Member Role: Primary Care Physician Address: Address: [address] [facility] [address] [place], [place] [id number] [place] [address] Care Team Related Persons Name: STEPHY SIMPSON [...] BE BASED ON THE PRIMARY CLINICAL RECORDS. [employer] [facility]. provides no warranty or guarantee of the accuracy or completeness of information in this document.
--- NOTE | 2023-07-01 17:33 | PCM.HP.STD ---
[facility] - General General Date of Admission: 07/01/23 Date of Service: 07/01/23 Chief Complaint: Abdominal pain HPI Narrative NADINE SILVEIRA, is a 42 F who presented to the emergency department at [facility] on 07/01/2023 complaining of abdominal pain that is in the epigastric area and right upper quadrant. Patient states about 2 weeks ago she suffered from some mild abdominal pain in this area and it resolved however on Thursday it returned and has been persistent. She reported that she was at work when it started and it felt like that her bra was too tight in the epigastric area. The only other area of her abdomen that is painful is a right upper quadrant and she has no pain that radiates to her back or shoulders. She has had some intermittent nausea and vomiting with 1 episode of emesis today. She states that eating makes her feel worse but she has been able to take in liquids without too much difficulty. She has been fearful of eating but was very hungry and try to eat a cookie earlier today which resulted in immediate increased pain and that is when she had her episode of emesis following. She has a history of peptic ulcer disease and tried taking some famotidine which has previously helped but had no resolution with the famotidine and this episode of her pain. She was seen in the emergency department yesterday for this and was given some Protonix and Carafate and instructed to make an outpatient follow-up with general surgery. She reports that the GI cocktail did not really help much and she was not able to get an appointment with general surgery to the and she returned as she was concerned that she would be in pain until then and that she is worse. Vital signs on presentation are unremarkable. Her CBC shows no leukocytosis but she does have a mild anemia with a hemoglobin of 11. This is new when compared to the other day when she had hemoglobin of 12. Her chemistry panel is unremarkable with a normal BUN to creatinine ratio. LFTs are unremarkable with a normal bilirubin and alkaline phosphatase. Lipase was normal at 26. She had an ultrasound done yesterday which demonstrated gallbladder wall thickening with trace pericholecystic fluid and a negative Hwang's sign. A CT of the abdomen pelvis was performed today showed a multinodular lower infiltrate of the left lower lobe (patient asymptomatic and has a benign exam), slightly enlarged liver with a heterogeneous appearance and periportal fluid consistent with nonspecific hepatitis with no calcified stones in the gallbladder however there was mild pericholecystic fluid and thickening of the wall. Patient has a history of opiate abuse and does not want to utilize opiates for pain so she was given Toradol which gave her good relief. She was also given antiemetics which helped her as well. Emergency room physician discussed the case with Dr. Boone from gastroenterology and he recommended an MRCP as well as a HIDA scan with CCK be performed and also asked him to order an ESR's, CRP, and acute hepatitis panel. [facility] Medical History (Updated 07/01/23 @ 17:[address] Nydia Harris DO) History of peptic ulcer disease Opiate abuse, episodic Tobacco abuse Home Medications sucralfate 1 gram tablet (Carafate) 1 g PO Q6H stomach ulcers #60 tabs 06/30/23 [Rx Last Taken 07/01/23] buprenorphine 2 mg-naloxone 0.5 mg sublingual film 0.5 film buccal DAILY withdrawal 07/01/23 [History Last Taken 06/30/23] clonidine HCl 0.1 mg tablet 0.1 mg PO QHS blood pressure 07/01/23 [History Last Taken 06/30/23] famotidine 40 mg tablet 40 mg PO DAILY acid reflux 07/01/23 [History Last Taken 07/01/23] medroxyprogesterone 150 mg/mL intramuscular suspension 150 mg IM Q90D control 07/01/23 [History Last Taken 04/12/23] Allergy/AdvReac Type Severity Reaction Status Date / Time No Known Allergies Allergy Verified 07/01/23 12:49 no significant family history Surgical History History of appendectomy Social History (Updated 07/01/23 @ 17:[address] Nydia Harris DO) household members: none housing: apartment Smoking Status: Former smoker alcohol intake: never substance use type: former substance user Date of last use: 15 years ago-opiates not IV ROS Constitutional Constitutional: Reports anorexia; Denies change in weight, chills, fatigue, fever(s), malaise, night sweats, weakness or other Eyes Eyes: Denies blurry vision, change in eye color, change in vision, discharge from eye(s), double vision, erythema, eye pain, loss of vision or other ENT HEENT: Denies abnormal hearing, dysphagia, ear pain, epistaxis, headache(s), hearing loss, nasal congestion, nasal discharge, post nasal drip, sinus pressure, sore throat or other Cardiovascular Cardiovascular: Denies chest pain, claudication, dyspnea on exertion, edema, lightheadedness, orthopnea, palpitations, paroxysmal nocturnal dyspnea, rapid heart rate, syncope or other Respiratory/Chest Respiratory/Chest: Denies cough, dyspnea, excessive phlegm production, hemoptysis, productive cough, shortness of breath at rest, shortness of breath with exertion, wheezing or other Gastrointestinal Gastrointestinal: Reports abdominal pain, nausea and vomiting; Denies coffee ground emesis, constipation, diarrhea, dyspepsia, hematemesis, hematochezia, loose stools, melena or other Genitourinary Genitourinary: Denies burning urination, difficulty urinating, dysuria, hematuria, nocturia, urinary frequency, urinary hesitancy, urinary incontinence, urinary urgency or other Musculoskeletal Musculoskeletal: Denies arthralgias, back pain, joint pain, joint stiffness, joint swelling, myalgias, neck pain or other Neurologic Neurologic: Denies abnormal gait, abnormal speech, confusion, disequilibrium, dizziness, focal weakness, headache(s), numbness, paresthesias, seizure-like activity, seizures, syncope, tingling, tremor(s) or other Psychiatric Psychiatric: Denies anxiety, depression, homicidal ideation, suicidal ideation or other Endocrine Endocrinology: Denies change in body appearance, cold intolerance, excessive sweating, heat intolerance, polydipsia, polyuria or other Hematologic/Lymphatic Hematologic/Lymphatic: Denies anemia, easy bleeding, easy bruising, lymphadenopathy or other Allergic/Immunologic Allergic/Immunologic: Denies rhinitis, hives, eczemia, asthma or other Vital Signs Vital Signs Vital Signs: 07/01/23 12:49 Temperature 97.2 F L Temperature Source Temporal Pulse Rate 65 Respiratory Rate 14 Blood Pressure 115/74 Blood Pressure Mean 87 Pulse Ox 98 Oxygen Delivery Method Room Air Weight Weight: 56.6 kg Body Mass Index (BMI) 23.6 Physical Exam Const alert, oriented x3, no apparent distress, average body habitus, healthy appearing and well nourished Constitutional Narrative: Middle-aged, white female, sitting up in bed, appears comfortable, nontoxic General Appearance: cooperative HEENT normocephalic, head/scalp atraumatic, hearing grossly normal bilaterally and oropharynx normal Eyes PERRL, EOMs intact bilaterally and conjunctivae normal Eyes Narrative: No scleral icterus Neck no lymphadenopathy and supple Neck Narrative: Trachea midline Resp normal respiratory effort, no retractions, no use of accessory muscles and clear to auscultation bilaterally Auscultation: Negative for rales, rhonchi or wheezes Cardio regular rate, regular rhythm, S1 normal heart sound, S2 normal heart sound, no murmurs, no rub, no gallops and no clicks GI normal to inspection, nondistended, normoactive bowel sounds and soft to palpation; Negative for non-tender GI Narrative: Epigastric abdominal tenderness as well as right upper quadrant tenderness with guarding Extremity no clubbing, cyanosis or edema Neuro oriented x3, moves all extremities and no focal motor deficits Speech: speech normal Psych affect normal Psych Narrative: Pleasant, interacts appropriately, eye contact is good Results Lab / Micro Data 07/01/23 14:10 07/01/23 14:10 Labs: Laboratory Results - last 24 hr 07/01/23 14:10: WBC 5.7, RBC 3.47 L, Hgb 11.0 L, Hct 32.0 L, MCV 92.2, MCH 31.7, MCHC 34.4, RDW Std Deviation 41.8, RDW Coeff of [place] 12.4, Plt Count 223, MPV 11.6, Immature Gran % (Auto) 0.200, Neut % (Auto) 66.1, Lymph % (Auto) 25.6, [place] % (Auto) 5.5, Eos % (Auto) 1.9, Baso % (Auto) 0.7, Absolute Neuts (auto) 3.8, Absolute Lymphs (auto) 1.45, Nucleated RBC % 0, Sodium 144, Potassium 3.7, Chloride 116 H, Carbon Dioxide 26.0, Anion Gap 2 L, BUN 4 L, Creatinine 0.77, Estim Creat Clear Calc 73.29, Est GFR (MDRD) Af Amer 107, Est GFR (MDRD) Non-Af 88, BUN/Creatinine Ratio 5.2 L, Glucose 110 H, Calcium 8.5, Total Bilirubin 0.20, Direct Bilirubin < 0.05, AST 11 L, ALT 14, Alkaline Phosphatase 51, Total Protein 5.9 L, Albumin 2.6 L, Globulin 3.3, Lipase 26 Imagaing Radiology Impression Abdomen/Pelvis CT 07/01/23 15:36 IMPRESSION: Multinodular infiltrate left lower lobe possibly inflammatory. CT of the chest recommended for more definitive evaluation. Findings consistent with nonspecific hepatocellular disease or hepatitis Thick-walled gallbladder without calcified stones and mild pericholecystic fluid. If concern for acalculous cholecystitis HIDA scan with CCK stimulation recommended Electronically Signed: Cesar Gupta MD at 16:53 EST , Assessment & Plan Assessment/Plan (1) Thickening of wall of gallbladder with pericholecystic fluid: (2) Abnormal CT scan, chest: (3) Abdominal pain: PLAN: Plan Right upper quadrant and epigastric abdominal pain -Etiology is unclear -Check HIDA scan with CCK injection -Check MRCP -Protonix IV twice daily -Check guaiac with drop in hemoglobin from yesterday -Sed rate, CRP, acute hepatitis panel pending -Clear liquids and n.p.o. after midnight -Toradol for pain as patient has previous history of opiate abuse and wants to avoid -Will need to discontinue if guaiac is positive or hemoglobin drops -As needed Tylenol for pain -IV fluids as ordered -As needed antiemetics available Abnormal CT of lower lung go -Would recommend outpatient follow-up with CT of the chest after discharge -This was discussed with the patient on admission Hypertension -Continue home clonidine GERD -Hold home famotidine -IV Protonix 40 mg twice daily History of opiate abuse -Continue home buprenorphine History of tobacco abuse -Remote -Recommend ongoing cessation DVT prophylaxis -Lovenox CODE STATUS Full code Charges/Coding Visit Charges Inpatient E&M: 69695 Init Hosp L2
[2023-07-01 18:07] LABS: Erythrocyte Sedimentation Rate 8 mm/hr (0-30)
[2023-07-01 19:38] VITALS: BMI 23.5
[2023-07-01 19:44] VITALS: BP 116/73; PULSE 80; RESP 16; TEMP 37.1; O2SAT 100
[2023-07-01] MEDS: Lactated Ringers 1,000 ML 100 ML IV (20:29)
[2023-07-01] MEDS: Pantoprazole Sodium 40 MG in 0.9% Normal Saline (100mL MB+) 100 ML 330 MG IV (22:27)
[2023-07-01] MEDS: cloNIDine HCl 0.1 MG Tablet 0.100000000000000006 MG PO (22:27)
--- NOTE | 2023-07-01 23:00 | EX.PCM.CON.G ---
HPI Consult Data Date of Consult: 07/01/23 HPI Narrative Reason for Consultation: Abdominal pain HPI Narrative: NADINE SILVEIRA, is a 42 F who presents with worsening epigastric and abdominal pain. Patient states about 2 weeks ago she suffered from some mild abdominal pain in this area and it resolved however on Thursday it returned and has been persistent. She reported that she was at work when it started and it felt like that her bra was too tight in the epigastric area. The only other area of her abdomen that is painful is a right upper quadrant and she has no pain that radiates to her back or shoulders. She has had some intermittent nausea and vomiting with 1 episode of emesis today. She states that eating makes her feel worse but she has been able to take in liquids without too much difficulty. She has been fearful of eating but was very hungry and try to eat a cookie earlier today which resulted in immediate increased pain and that is when she had her episode of emesis following. She has a history of peptic ulcer disease and tried taking some famotidine which has previously helped but had no resolution with the famotidine and this episode of her pain. She was seen in the emergency department yesterday for this and was given some Protonix and Carafate and instructed to make an outpatient follow-up with general surgery. She reports that the GI cocktail did not really help much and she was not able to get an appointment with general surgery to the and she returned as she was concerned that she would be in pain until then and that she is worse. Her CBC shows no leukocytosis but she does have a mild anemia with a hemoglobin of 11. This is new when compared to the other day when she had hemoglobin of 12. Her chemistry panel is unremarkable with a normal BUN to creatinine ratio. LFTs are unremarkable with a normal bilirubin and alkaline phosphatase. Lipase was normal at 26. She had an ultrasound done yesterday which demonstrated gallbladder wall thickening with trace pericholecystic fluid and a negative Hwang's sign. A CT of the abdomen pelvis was performed today showed a multinodular lower infiltrate of the left lower lobe (patient asymptomatic and has a benign exam), slightly enlarged liver with a heterogeneous appearance and periportal fluid consistent with nonspecific hepatitis with no calcified stones in the gallbladder however there was mild pericholecystic fluid and thickening of the wall. Patient has a history of opiate abuse and does not want to utilize opiates for pain so she was given Toradol which gave her good relief. She was also given antiemetics which helped her as well. I recommended an MRCP as well as a HIDA scan with CCK be performed and also asked him to order an ESR's, CRP, and acute hepatitis panel. [facility] Medical History (Updated 07/02/23 @ 12:[address] Lyle Boone, DO) History of peptic ulcer disease Opiate abuse, episodic Tobacco abuse Home Medications sucralfate 1 gram tablet (Carafate) 1 g PO Q6H stomach ulcers #60 tabs 06/30/23 [Rx Last Taken 07/01/23] buprenorphine 2 mg-naloxone 0.5 mg sublingual film 0.5 film buccal DAILY withdrawal 07/01/23 [History Last Taken 06/30/23] clonidine HCl 0.1 mg tablet 0.1 mg PO QHS blood pressure 07/01/23 [History Last Taken 06/30/23] famotidine 40 mg tablet 40 mg PO DAILY acid reflux 07/01/23 [History Last Taken 07/01/23] medroxyprogesterone 150 mg/mL intramuscular suspension 150 mg IM Q90D control 07/01/23 [History Last Taken 04/12/23] Allergy/AdvReac Type Severity Reaction Status Date / Time No Known Allergies Allergy Verified 07/01/23 12:49 Family History no significant family his Surgical History History of appendectomy Social History (Updated 07/01/23 @ 17:[address] Nydia Harris DO) household members: none housing: apartment Smoking Status: Former smoker alcohol intake: never substance use type: former substance user Date of last use: 15 years ago-opiates not IV ROS Constitutional Constitutional: Reports anorexia; Denies change in weight, chills, fatigue, fever(s), malaise, night sweats, weakness or other Eyes Eyes: Denies blurry vision, change in eye color, change in vision, discharge from eye(s), double vision, erythema, eye pain, loss of vision or other ENT HEENT: Denies abnormal hearing, dysphagia, ear pain, epistaxis, headache(s), hearing loss, nasal congestion, nasal discharge, post nasal drip, sinus pressure, sore throat or other Cardiovascular Cardiovascular: Denies chest pain, claudication, dyspnea on exertion, edema, lightheadedness, orthopnea, palpitations, paroxysmal nocturnal dyspnea, rapid heart rate, syncope or other Respiratory/Chest Respiratory/Chest: Denies cough, dyspnea, excessive phlegm production, hemoptysis, productive cough, shortness of breath at rest, shortness of breath with exertion, wheezing or other Gastrointestinal Gastrointestinal: Reports abdominal pain, nausea and vomiting; Denies coffee ground emesis, constipation, diarrhea, dyspepsia, hematemesis, hematochezia, loose stools, melena or other Genitourinary Genitourinary: Denies burning urination, difficulty urinating, dysuria, hematuria, nocturia, urinary frequency, urinary hesitancy, urinary incontinence, urinary urgency or other Musculoskeletal Musculoskeletal: Denies arthralgias, back pain, joint pain, joint stiffness, joint swelling, myalgias, neck pain or other Neurologic Neurologic: Denies abnormal gait, abnormal speech, confusion, disequilibrium, dizziness, focal weakness, headache(s), numbness, paresthesias, seizure-like activity, seizures, syncope, tingling, tremor(s) or other Psychiatric Psychiatric: Denies anxiety, depression, homicidal ideation, suicidal ideation or other Endocrine Endocrinology: Denies change in body appearance, cold intolerance, excessive sweating, heat intolerance, polydipsia, polyuria or other Hematologic/Lymphatic Hematologic/Lymphatic: Denies anemia, easy bleeding, easy bruising, lymphadenopathy or other Allergic/Immunologic Allergic/Immunologic: Denies rhinitis, hives, eczemia, asthma or other Physical Exam Const alert, oriented x3, no apparent distress, average body habitus, healthy appearing and well nourished General Appearance: cooperative HEENT normocephalic, head/scalp atraumatic, hearing grossly normal bilaterally and oropharynx normal Eyes PERRL, EOMs intact bilaterally and conjunctivae normal Eyes Narrative: No scleral icterus Neck no lymphadenopathy and supple Neck Narrative: Trachea midline Resp normal respiratory effort, no retractions, no use of accessory muscles and clear to auscultation bilaterally Auscultation: Negative for rales, rhonchi or wheezes Cardio regular rate, regular rhythm, S1 normal heart sound, S2 normal heart sound, no murmurs, no rub, no gallops and no clicks GI normal to inspection, nondistended, normoactive bowel sounds and soft to palpation; Negative for non-tender GI Narrative: Epigastric abdominal tenderness as well as right upper quadrant tenderness with guarding Extremity no clubbing, cyanosis or edema Neuro oriented x3, moves all extremities and no focal motor deficits Speech: speech normal Psych affect normal Psych Narrative: Pleasant, interacts appropriately, eye contact is good Lab / Micro Data 07/02/23 06:15 07/02/23 06:15 Labs: Laboratory Results - last 24 hr 07/01/23 14:10: WBC 5.7, RBC 3.47 L, Hgb 11.0 L, Hct 32.0 L, MCV 92.2, MCH 31.7, MCHC 34.4, RDW Std Deviation 41.8, RDW Coeff of Carol Ann 12.4, Plt Count 223, MPV 11.6, Immature Gran % (Auto) 0.200, Neut % (Auto) 66.1, Lymph % (Auto) 25.6, [place] % (Auto) 5.5, Eos % (Auto) 1.9, Baso % (Auto) 0.7, Absolute Neuts (auto) 3.8, Absolute Lymphs (auto) 1.45, Nucleated RBC % 0, ESR 8, Sodium 144, Potassium 3.7, Chloride 116 H, Carbon Dioxide 26.0, Anion Gap 2 L, BUN 4 L, Creatinine 0.77, Estim Creat Clear Calc 73.29, Est GFR (MDRD) Af Amer 107, Est GFR (MDRD) Non-Af 88, BUN/Creatinine Ratio 5.2 L, Glucose 110 H, Calcium 8.5, Total Bilirubin 0.20, Direct Bilirubin < 0.05, AST 11 L, ALT 14, Alkaline Phosphatase 51, C-React Prot Ext Range 21.90 H, Total Protein 5.9 L, Albumin 2.6 L, Globulin 3.3, Lipase 26 07/02/23 06:15: WBC 5.3, RBC 3.35 L, Hgb 10.1 L, Hct 31.1 L, MCV 92.8, MCH 30.1, MCHC 32.5 D, RDW Std Deviation 42.0, RDW Coeff of Carol Ann 12.2, Plt Count 197, MPV 11.9, Immature Gran % (Auto) 0.400, Neut % (Auto) 55.8, Lymph % (Auto) 33.0, [place] % (Auto) 6.8, Eos % (Auto) 3.2, Baso % (Auto) 0.8, Absolute Neuts (auto) 3.0, Absolute Lymphs (auto) 1.74, Nucleated RBC % 0, Sodium 145, Potassium 3.6, Chloride 114 H, Carbon Dioxide 26.0, Anion Gap 5, BUN 5 L, Creatinine 0.63, Estim Creat Clear Calc 89.57, Est GFR (MDRD) Af Amer 133, Est GFR (MDRD) Non-Af 110, BUN/Creatinine Ratio 7.9 L, Glucose 86, Calcium 7.9 L, Phosphorus 3.2, Magnesium 2.1, Total Bilirubin 0.20, AST 9 L, ALT 11 L, Alkaline Phosphatase 39 L, Total Protein 5.0 L, Albumin 2.2 L, Globulin 2.8, Albumin/Globulin Ratio 0.8 L, TSH 3.31 07/02/23 08:50: Urine Test Negative Imagaing Radiology Impression Abdomen/Pelvis CT 07/01/23 15:36 IMPRESSION: Multinodular infiltrate left lower lobe possibly inflammatory. CT of the chest recommended for more definitive evaluation. Findings consistent with nonspecific hepatocellular disease or hepatitis Thick-walled gallbladder without calcified stones and mild pericholecystic fluid. If concern for acalculous cholecystitis HIDA scan with CCK stimulation recommended Electronically Signed: Cesar Gupta MD at 16:53 EST , MRCP 07/01/23 17:08 IMPRESSION: Findings equivocal for acute acalculous cholecystitis. Consider nuclear medicine HIDA scan. Periportal edema of unknown significance. Electronically Signed: Travon Flores MD at 20:21 EST , Hepatobiliary Scan Nuclear Medicine 07/02/23 10:00 IMPRESSION: No HIDA scan evidence to suspect acute cholecystitis. There is normal radiotracer activity noted within the biliary tree, gallbladder and duodenum. However, gallbladder ejection fraction is abnormally low at 9%, normal is 30. Findings are suspicious for biliary dyskinesia, surgical consultation recommended Electronically Signed: Lester Sinclair MD at 11:11 EST , Assessment & Plan Assessment/Plan (1) Thickening of wall of gallbladder with pericholecystic fluid: (2) Abnormal CT scan, chest: (3) Abdominal pain: QUALIFIERS: Abdominal location: epigastric Qualified Code(s): R10.13 - Epigastric pain PLAN: Plan 42-year-old with worsening abdominal pain. Differential diagnosis does include a calculus cholecystitis, peptic ulcer disease and the patient has a history of peptic ulcer disease. She will undergo an upper endoscopy. -Etiology is unclear -Check HIDA scan with CCK injection -Check MRCP -Protonix IV twice daily -Agree with check guaiac with drop in hemoglobin from yesterday -Sed rate, CRP, acute hepatitis panel pending -Clear liquids and n.p.o. after midnight -As needed Tylenol for pain -IV fluids as ordered -As needed antiemetics available
[2023-07-02] VITALS (9 sets, daily range): BP systolic 88–112; BP diastolic 58–80; PULSE 70–89; RESP 14–18; TEMP 36.6–36.9; O2SAT 95–100
[2023-07-02] MEDS: Lactated Ringers 1,000 ML 100 ML IV ×2 (05:44→21:17)
[2023-07-02 06:50] LABS: Absolute Lymphocyte Count 1.74 X10^3/uL (0.83-4.51); Basophil# 0.04 X10^3/uL; Basophil% 0.8 % (0-1); Eosinophil# 0.17 X10^3/uL; Eosinophils% 3.2 % (0-5); Hematocrit 31.1 % (37-47); Hemoglobin 10.1 g/dL (12.0-15.0); Lymphocyte # 1.74 X10^3/ul (0.83-4.51); Mean Corp Hgb Conc 32.5 g/dL (32-36); Mean Corpuscular Hgb 30.1 pg (27.0-32.0); Mean Corpuscular Volume 92.8 fL (81-99); Mean Platelet Vol. 11.9 fl (6.2-12.0); Monocyte# 0.36 X10^3/uL; Monocyte% 6.8 % (0-10); NRBC Flagged by Analyzer 0 % (0-5); Neutrophil # 2.95 X10^3/uL (2.7-7.7); Neutrophil % 55.8 % (47-70); Platelet Count 197 K/mm3 (150-450); RBC Distribution Width CV 12.2 % (11.6-14.6); Red Blood Count 3.35 M/mm3 (4.2-5.4); White Blood Count 5.3 K/mm3 (4.4-11.0)
[2023-07-02 07:36] LABS: ALB/GLOB Ratio 0.8 RATIO (0.9-2.4); AST(SGOT) 9 U/L (15-37); Alanine Aminotransfer ALT/SGPT 11 U/L (13-56); Albumin, Serum 2.2 g/dL (3.2-5.0); Alkaline Phosphatase 39 U/L (45-117); Anion Gap 5 (5-15); BUN 5 mg/dL (7-18); BUN/Creat Ratio 7.9 RATIO (10-20); Calcium,Total 7.9 mg/dL (8.5-10.1); Chloride 114 mmol/L (98-107); Creatinine, Serum 0.63 mg/dL (0.55-1.02); EST Glomerular Filtration Rate 110 mL/min (>60); Est Glom Filt Rate - Afr Amer 133 mL/min (>60); Estimated Creatinine Clearance 89.57 ml/min; Globulin 2.8 g/dL (2.2-4.2); Glucose 86 mg/dL (74-106); Magnesium 2.1 mg/dL (1.6-2.6); Phosphorus 3.2 mg/dL (2.5-4.9); Potassium 3.6 mmol/L (3.5-5.1); Sodium Level 145 mmol/L (136-145); Thyroid Stim Hormone (TSH) 3.31 uIU/mL (0.358-3.74)
[2023-07-02] MEDS: Ketorolac 15 MG/ML Vial IV ×2 (08:52→16:19)
--- NOTE | 2023-07-02 08:59 | NURSING ---
to radiology for testing
[2023-07-02 09:04] LABS: Internal QC Validated? YES +Cl - CLEAR BKGD; Pregnancy, Urine Negative Negative; Record Kit Lot#,Urine Preg 667200
--- NOTE | 2023-07-02 10:00 | NM_ITS ---
INDICATION: RUQ pain EXAMINATION: NUCLEAR MEDICINE HEPATOBILIARY SCAN - PA Hepatobiliary Imaging Quantitive TECHNIQUE: 5.3 mCi technetium 99m choletec was intravenously administered and static images were obtained. COMPARISON: FINDINGS: There is homogeneous uptake and excretion of the radiopharmaceutical by the liver. There is no abnormal hyperemia along the gallbladder fossa. Biliary activity is noted at 30 minutes. No bowel activity noted. Gallbladder activity is noted at 30 minutes. Patient was injected with CCK, at 10 minutes from the CCK injection there is evidence of faint bowel activity which improves over time. Gallbladder ejection fraction however measures only 9% which is abnormal and concerning for biliary dyskinesia NM/Hepatobilliary Img w/Pharm Int IMPRESSION: No HIDA scan evidence to suspect acute cholecystitis. There is normal radiotracer activity noted within the biliary tree, gallbladder and duodenum. However, gallbladder ejection fraction is abnormally low at 9%, normal is 30. Findings are suspicious for biliary dyskinesia, surgical consultation recommended Electronically Signed: Lester Sinclair MD at 11:11 EST ,
--- NOTE | 2023-07-02 10:31 | PCM.PN.HOSP ---
Reason for Visit Reason for Visit: Diagnoses Other specified diseases of gallbladder (07/01/23) Unspecified abdominal pain (07/01/23) Abnormal findings on diagnostic imaging of other specified body structures (07/01/23) Objective Data Objective Data Vital Signs: Vital Signs Temp Pulse Resp BP Pulse Ox O2 Del Method 98.4 F 72 18 105/69 100 Room Air 07/02/23 08:43 07/02/23 08:43 07/02/23 08:43 07/02/23 08:43 07/02/23 08:43 07/02/23 08:43 Oxygen Delivery Method Room Air Weight: 124 lb 5.451 oz Body Mass Index (BMI) 23.5 Intake & Output: Intake and Output for Last 24 Hours 06/30/23 07/01/23 07/02/23 23:59 23:59 23:59 Intake Total 110 / 460 1275 / 1275 Balance 110 / 460 1275 / 1275 Lab / Micro Data 07/02/23 06:15 07/02/23 06:15 Labs: Laboratory Results - last 24 hr 07/01/23 14:10: WBC 5.7, RBC 3.47 L, Hgb 11.0 L, Hct 32.0 L, MCV 92.2, MCH 31.7, MCHC 34.4, RDW Std Deviation 41.8, RDW Coeff of Carol Ann 12.4, Plt Count 223, MPV 11.6, Immature Gran % (Auto) 0.200, Neut % (Auto) 66.1, Lymph % (Auto) 25.6, [place] % (Auto) 5.5, Eos % (Auto) 1.9, Baso % (Auto) 0.7, Absolute Neuts (auto) 3.8, Absolute Lymphs (auto) 1.45, Nucleated RBC % 0, ESR 8, Sodium 144, Potassium 3.7, Chloride 116 H, Carbon Dioxide 26.0, Anion Gap 2 L, BUN 4 L, Creatinine 0.77, Estim Creat Clear Calc 73.29, Est GFR (MDRD) Af Amer 107, Est GFR (MDRD) Non-Af 88, BUN/Creatinine Ratio 5.2 L, Glucose 110 H, Calcium 8.5, Total Bilirubin 0.20, Direct Bilirubin < 0.05, AST 11 L, ALT 14, Alkaline Phosphatase 51, C-React Prot Ext Range 21.90 H, Total Protein 5.9 L, Albumin 2.6 L, Globulin 3.3, Lipase 26 07/02/23 06:15: WBC 5.3, RBC 3.35 L, Hgb 10.1 L, Hct 31.1 L, MCV 92.8, MCH 30.1, MCHC 32.5 D, RDW Std Deviation 42.0, RDW Coeff of Carol Ann 12.2, Plt Count 197, MPV 11.9, Immature Gran % (Auto) 0.400, Neut % (Auto) 55.8, Lymph % (Auto) 33.0, [place] % (Auto) 6.8, Eos % (Auto) 3.2, Baso % (Auto) 0.8, Absolute Neuts (auto) 3.0, Absolute Lymphs (auto) 1.74, Nucleated RBC % 0, Sodium 145, Potassium 3.6, Chloride 114 H, Carbon Dioxide 26.0, Anion Gap 5, BUN 5 L, Creatinine 0.63, Estim Creat Clear Calc 89.57, Est GFR (MDRD) Af Amer 133, Est GFR (MDRD) Non-Af 110, BUN/Creatinine Ratio 7.9 L, Glucose 86, Calcium 7.9 L, Phosphorus 3.2, Magnesium 2.1, Total Bilirubin 0.20, AST 9 L, ALT 11 L, Alkaline Phosphatase 39 L, Total Protein 5.0 L, Albumin 2.2 L, Globulin 2.8, Albumin/Globulin Ratio 0.8 L, TSH 3.31 07/02/23 08:50: Urine Test Negative Radiography Diagnostic Testing: Radiology Impression Abdomen/Pelvis CT 07/01/23 15:36 IMPRESSION: Multinodular infiltrate left lower lobe possibly inflammatory. CT of the chest recommended for more definitive evaluation. Findings consistent with nonspecific hepatocellular disease or hepatitis Thick-walled gallbladder without calcified stones and mild pericholecystic fluid. If concern for acalculous cholecystitis HIDA scan with CCK stimulation recommended MRCP 07/01/23 17:08 IMPRESSION: Findings equivocal for acute acalculous cholecystitis. Consider nuclear medicine HIDA scan. Periportal edema of unknown significance. Physical Exam Narrative Seen and examined. Patient complains of pain after eating mainly in epigastric and right upper quadrant region for about 1 week. Pain persist even after 7-8 hours after eating. No fever. Physical exam General: Alert, Oriented x3, Cooperative HEENT: Atraumatic, PERRLA, EOMI, Normocephalic Oral: No Gingival or Mucosal Lesions/ Ulcerations Neck: Supple, No JVD, Negative Carotid Bruits Lungs: Air entry diminished in bilateral lung bases. No crepitation/rhonchi Cardiovascular: Regular rate, Regular Rhythm, Normal S1, Normal S2, No murmurs Abdomen: Bowel Sounds Present, Soft, mild tenderness over right upper quadrant, Non-Distended : No renal angle tenderness. No suprapubic tenderness. Extremities: No edema, Capillary Refill Less than 3 Seconds Skin: No rashes, No breakdown Musculoskeletal: No Tenderness to Palpation of Joints or Extremities Neurological: Cranial nerves II-XII grossly intact, DTR 2+/4. No acute focal neurological deficit. Psych/Mental Status: Normal Affect, Appropriate. Assessment & Plan Assessment/Plan (1) Thickening of wall of gallbladder with pericholecystic fluid: (2) Abnormal CT scan, chest: (3) Abdominal pain: PLAN: Plan Continue all female being admitted for abdominal pain mainly RUQ/epigastric pain for about 1 week. . Right upper quadrant and epigastric abdominal pain most likely due to biliary dyskinesia: The patient is being admitted to [facility] floor. Had extensive workup including liver ultrasound, CT abdomen, MRCP, HIDA scan And then EGD. All the scans showed acalculus cholecystitis with mild GB wall thickening, small pericholecystic fluid. HIDA scan after cholecystokinin injection shows GB ejection fraction abnormally low 9% normal is 30%. The patient history also consistent with abdominal pain after eating. It also shows periportal edema. Liver is well-controlled. MRCP shows no obvious obstructing stone mass or stricture. Patient EGD was essentially normal except erythematous duodenopathy. The significance and the cause of periportal edema unclear manage patient does not have fever. Color Doppler of portal vein would have been important but we do not have in [facility]. Patient seen by GI and surgeon. No leukocytosis. CRP and ESR elevated. ALT AST on lower side. Alkaline phosphatase low. Total bilirubin normal. Hepatitis profile and HIV from 2013 are negative. Recent hepatitis profile negative but I gastric total bili normal. PPI once daily. Pain control. 2.Abnormal CT of lower lung go -Would recommend outpatient follow-up with CT of the chest after discharge -This was discussed with the patient on admission 3. Hypertension -Continue home clonidine GERD -Hold home famotidine -IV Protonix 40 mg twice daily History of opiate abuse -Continue home buprenorphine History of tobacco abuse -Remote -Recommend ongoing cessation DVT prophylaxis -Lovenox CODE STATUS Full code Charges/Coding Visit Charges Inpatient E&M: 03471 Subs Hosp L2
--- NOTE | 2023-07-02 11:09 | NURSING ---
pt returned to room at approximately 11:00 and at 11:01 AC came for pt and they took her to surgical area
[2023-07-02] MEDS: Lactated Ringers 1,000 ML 15 ML IV (11:23)
--- NOTE | 2023-07-02 12:00 | EGD_PTH ---
PATHOLOGY RESULTS PATIENT: NADINE SILVEIRA LOC: MS3 U#:[id number] AGE/SX: 42/F ROOM: [facility] [place] RE07/01/[address]: Dr. Jose Raul Shook MD : 1980 BED: 1 DIS: 07/03/2023 SPEC #: [id number] RECD: 07/03/23 09:41 STATUS: NEDA RERoshan #: [id number] GABRIEL: 07/02/23 12:[address]: Lyle Boone DEPT: SURGICAL PATHOLOGY RECD BY: Maddie Bradshaw ENTERED: 07/03/23 09:42 SP TYPE: EGD BIOPSY OTHR DR: DO Dr. Jose Raul Smith MD Dr. Tamera Robotham, MD No Primary Care Phys Tissues: Duodenum, NOS Procedures: Surgery Specimen Level IV Comments: @ Ordering doctor for SUIV edited from to @ by JUWAN at 07/03/231451 @ Submitting doctor edited from to @ by RGOOD at 07/03/231451 HEADER OPERATION: EGD, biopsy PRE-OP DIAGNOSIS: Thickening of gallbladder wall with pericholecystic fluid, abnormal chest CT scan, abdominal pain TISSUE SUBMITTED: Duodenum biopsy MICROSCOPIC DIAGNOSIS Duodenum, biopsy: Fragments of duodenal mucosa, no pathologic diagnosis. JOLANTA:ta 07/07/2023 MICROSCOPIC DESCRIPTION Slides are reviewed. GROSS DESCRIPTION Received in fixative is one container labeled with the patient's name and designated duodenum biopsy. The specimen consists of two irregular fragments of light vargas soft tissue that in aggregate measure 0.8 x 0.3 x 0.1 cm. The specimen is totally submitted in one cassette. / JOLANTA:ta 07/03/2023 TC:4 CPT: 05725
--- NOTE | 2023-07-02 13:01 | OP.CCLET_ITS ---
07/02/2023 No Primary Care Physician Re : Upper GI endoscopy procedure for Radha Ng Dear Care Physician This procedure was performed on June. My impressions and recommendations are as follows: Impressions : - Normal esophagus. - Normal stomach. - Erythematous duodenopathy. Biopsied. Recommendations : - Discharge patient to home. - Resume previous diet. - Continue present medications. - Await pathology results. My findings are described in the full procedure note, which is enclosed. If I can be of further assistance, please feel free to contact me at . Sincerely, Lyle Boone, 07/02/2023 1:00:33 PM This report has been signed electronically.
--- NOTE | 2023-07-02 13:01 | OP.EGD_ITS ---
Patient Name: Radha Ng Procedure Date: 07/02/2023 12:34 PM Date of : 1980 Age: 42 Procedure: Upper GI endoscopy Indications: Epigastric abdominal pain, Abdominal pain in the right upper quadrant Providers: Lyle Boone DO Medicines: Monitored Anesthesia Care Patient Profile: This is a 42 year old female. Refer to note in patient chart for documentation of history and physical. Patient has symptoms of acute right upper quadrant abdominal pain and acute epigastric abdominal pain. Complications: No immediate complications. Procedure: Pre-Anesthesia Assessment: - Prior to the procedure, a History and Physical was performed, and patient medications and allergies were reviewed. The patient is competent. The risks and benefits of the procedure and the sedation options and risks were discussed with the patient. All questions were answered and informed consent was obtained. Patient identification and proposed procedure were verified by the physician in the pre-procedure area. Mental Status Examination: alert and oriented. Airway Examination: normal oropharyngeal airway and neck mobility. Respiratory Examination: clear to auscultation. CV Examination: normal. Prophylactic Antibiotics: The patient does not require prophylactic antibiotics. Prior Anticoagulants: The patient has taken no anticoagulant or antiplatelet agents. ASA Grade Assessment: II - A patient with mild systemic disease. After reviewing the risks and benefits, the patient was deemed in satisfactory condition to undergo the procedure. The anesthesia plan was to use monitored anesthesia care (MAC). Immediately prior to administration of medications, the patient was re-assessed for adequacy to receive sedatives. The heart rate, respiratory rate, oxygen saturations, blood pressure, adequacy of pulmonary ventilation, and response to care were monitored throughout the procedure. The physical status of the patient was re-assessed after the procedure. After obtaining informed consent, the endoscope was passed under direct vision. Throughout the procedure, the patient's blood pressure, pulse, and oxygen saturations were monitored continuously. The gastroscope was introduced through the mouth, and advanced to the second part of duodenum. The upper GI endoscopy was accomplished without difficulty. The patient tolerated the procedure well. Scope In: 12:49:45 PM Scope Out: 12:53:07 PM Total Procedure Duration Time 0 hours 3 minutes 22 seconds Findings: The examined esophagus was normal. The entire examined stomach was normal. Patchy mildly erythematous mucosa without active bleeding and with no stigmata of bleeding was found in the duodenal bulb. Biopsies were taken with a cold forceps for histology. Verification of patient identification for the specimen was done. Estimated blood loss was minimal. Impression: - Normal esophagus. - Normal stomach. - Erythematous duodenopathy. Biopsied. Recommendation: - Discharge patient to home. - Resume previous diet. - Continue present medications. - Await pathology results. Procedure Code(s): --- Professional --- 75412, Esophagogastroduodenoscopy, flexible, transoral; with biopsy, single or multiple CPT copyright 2021 [employer]. All rights reserved. The codes documented in this report are preliminary and upon director of therapy services review may be revised to meet current compliance requirements. Lyle Boone DO 07/02/2023 1:00:33 PM This report has been signed electronically. Number of Addenda: 0 Note Initiated On: 07/02/2023 12:34 PM
--- NOTE | 2023-07-02 13:36 | CON.PCM.SX_ITS ---
Assessment & Plan Assessment/Plan (1) Biliary dyskinesia: (2) Abdominal pain: QUALIFIERS: Abdominal location: epigastric Qualified Code(s): R10.13 - Epigastric pain PLAN: Plan Epifanio with patient that her MRCP did not show any stones or sludge, HIDA showed ejection fraction of 9% which is abnormal consistent with biliary dyskinesia. Patient states she did have increased pain during the HIDA scan as well and has pain after eating last thing she ate was a cookie yesterday. Currently patient denies pain except for during and after the HIDA which could be a good sign that this will resolve her pain. Did discuss patient there could be a small chance that this would not completely resolve the pain she was having. Did discuss with patient that her CT did show some portal edema unsure of the exact cause of that as bili dyskinesia does not cause that. Would plan for a possible liver biopsy at the time of surgery. Reviewed the anatomy with the patient and discussed the procedure: laparoscopic cholecystectomy with cholangiograms, possible liver biopsy, possible open. Review risks including but not limited to bleeding, infection, hernia, bile leak, retained gallstones requiring another procedure ERCP- Endoscopic Retrograde Cholangiopancreatography, injury to another organ (bile ducts, common bile duct, small bowel, etc.) and conversion to an open procedure. All questions were answered. Kiarra Abreu M.D. Pager: [phone] [facility] [address] [place] [address], [address] [place] [address] Office: [phone] HPI Consult Data Date of Consult: 07/02/23 HPI Narrative HPI Narrative: NADINE SILVEIRA, is a 42 F who presents to the ER 2 days in a row due to epigastric/right upper quadrant pain especially after eating. Patient states that it can continue little later in the day and once she is eating. Patient had an MRCP, HIDA, EGD today. Patient's HIDA showed ejection fraction less than 9% consistent with biliary dyskinesia, gallbladder was visualized thus not acute cholecystitis. Patient states she did have increased pain during the HIDA scan. Patient MRCP did not show any stones or sludge but called equivocal for acute acalculous cholecystitis recommended the HIDA scan did show the periportal edema of unknown significance. No significant findings were found during EGD as well. Patient has had normal white blood cell count and liver functions on admit and today. Patient does have a history of opioid abuse and would prefer to not get any narcotics after surgery would plan for just ibuprofen Tylenol and the Suboxone. Patient has a history of IV drug use about 11 years ago she does have a hepatitis panel that is pending. [facility] Medical History (Updated 07/02/23 @ 13:[address] Kiarra Abreu MD) History of peptic ulcer disease Opiate abuse, episodic Tobacco abuse Home Medications sucralfate 1 gram tablet (Carafate) 1 g PO Q6H stomach ulcers #60 tabs 06/30/23 [Rx Last Taken 07/01/23] buprenorphine 2 mg-naloxone 0.5 mg sublingual film 0.5 film buccal DAILY withdrawal 07/01/23 [History Last Taken 06/30/23] clonidine HCl 0.1 mg tablet 0.1 mg PO QHS blood pressure 07/01/23 [History Last Taken 06/30/23] famotidine 40 mg tablet 40 mg PO DAILY acid reflux 07/01/23 [History Last Taken 07/01/23] medroxyprogesterone 150 mg/mL intramuscular suspension 150 mg IM Q90D control 07/01/23 [History Last Taken 04/12/23] Allergy/AdvReac Type Severity Reaction Status Date / Time No Known Allergies Allergy Verified 07/01/23 12:49 Family History no significant family his Surgical History History of appendectomy Social History (Updated 07/01/23 @ 17:[address] Nydia Harris DO) household members: none housing: apartment Smoking Status: Former smoker alcohol intake: never substance use type: former substance user Date of last use: 15 years ago- opiates not IV ROS Constitutional Constitutional: Denies chills ENT HEENT: Denies dizziness Cardiovascular Cardiovascular: Denies chest pain Respiratory/Chest Respiratory/Chest: Denies shortness of breath at rest Gastrointestinal Gastrointestinal: Denies constipation, diarrhea, heartburn, hematemesis or melena Genitourinary Genitourinary: Denies burning urination Musculoskeletal Musculoskeletal: Denies joint pain Integumentary Integumentary: Denies rash Neurologic Neurologic: Denies focal weakness Endocrine Endocrinology: Denies palpitations Hematologic/Lymphatic Hematologic/Lymphatic: Denies easy bleeding Physical Exam Const alert, oriented x3 and no apparent distress HEENT normocephalic and head/scalp atraumatic Resp normal respiratory effort Cardio regular rate GI soft to palpation and non-tender; Negative for non-distended Palpation: Negative for guarding Extremity no clubbing, cyanosis or edema Neuro CN's II-XII intact bilaterally Psych mental status grossly normal Lab / Micro Data 07/02/23 06:15 07/02/23 06:15 Labs: Laboratory Results - last 24 hr 07/01/23 14:10: WBC 5.7, RBC 3.47 L, Hgb 11.0 L, Hct 32.0 L, MCV 92.2, MCH 31.7, MCHC 34.4, RDW Std Deviation 41.8, RDW Coeff of Carol Ann 12.4, Plt Count 223, MPV 11.6, Immature Gran % (Auto) 0.200, Neut % (Auto) 66.1, Lymph % (Auto) 25.6, [place] % (Auto) 5.5, Eos % (Auto) 1.9, Baso % (Auto) 0.7, Absolute Neuts (auto) 3.8, Absolute Lymphs (auto) 1.45, Nucleated RBC % 0, ESR 8, Sodium 144, Potassium 3.7, Chloride 116 H, Carbon Dioxide 26.0, Anion Gap 2 L, BUN 4 L, Creatinine 0.77, Estim Creat Clear Calc 73.29, Est GFR (MDRD) Af Amer 107, Est GFR (MDRD) Non-Af 88, BUN/Creatinine Ratio 5.2 L, Glucose 110 H, Calcium 8.5, Total Bilirubin 0.20, Direct Bilirubin < 0.05, AST 11 L, ALT 14, Alkaline Phosphatase 51, C-React Prot Ext Range 21.90 H, Total Protein 5.9 L, Albumin 2.6 L, Globulin 3.3, Lipase 26 07/02/23 06:15: WBC 5.3, RBC 3.35 L, Hgb 10.1 L, Hct 31.1 L, MCV 92.8, MCH 30.1, MCHC 32.5 D, RDW Std Deviation 42.0, RDW Coeff of Carol Ann 12.2, Plt Count 197, MPV 11.9, Immature Gran % (Auto) 0.400, Neut % (Auto) 55.8, Lymph % (Auto) 33.0, [place] % (Auto) 6.8, Eos % (Auto) 3.2, Baso % (Auto) 0.8, Absolute Neuts (auto) 3.0, Absolute Lymphs (auto) 1.74, Nucleated RBC % 0, Sodium 145, Potassium 3.6, Chloride 114 H, Carbon Dioxide 26.0, Anion Gap 5, BUN 5 L, Creatinine 0.63, Estim Creat Clear Calc 89.57, Est GFR (MDRD) Af Amer 133, Est GFR (MDRD) Non-Af 110, BUN/Creatinine Ratio 7.9 L, Glucose 86, Calcium 7.9 L, Phosphorus 3.2, Magnesium 2.1, Total Bilirubin 0.20, AST 9 L, ALT 11 L, Alkaline Phosphatase 39 L, Total Protein 5.0 L, Albumin 2.2 L, Globulin 2.8, Albumin/Globulin Ratio 0.8 L, TSH 3.31 07/02/23 08:50: Urine Test Negative Imagaing Radiology Impression Abdomen/Pelvis CT 07/01/23 15:36 IMPRESSION: Multinodular infiltrate left lower lobe possibly inflammatory. CT of the chest recommended for more definitive evaluation. Findings consistent with nonspecific hepatocellular disease or hepatitis Thick-walled gallbladder without calcified stones and mild pericholecystic fluid. If concern for acalculous cholecystitis HIDA scan with CCK stimulation recommended Electronically Signed: Cesar Gupta MD at 16:53 EST , MRCP 07/01/23 17:08 IMPRESSION: Findings equivocal for acute acalculous cholecystitis. Consider nuclear medicine HIDA scan. Periportal edema of unknown significance. Electronically Signed: Travon Flores MD at 20:21 EST , Hepatobiliary Scan Nuclear Medicine 07/02/23 10:00 IMPRESSION: No HIDA scan evidence to suspect acute cholecystitis. There is normal radiotracer activity noted within the biliary tree, gallbladder and duodenum. However, gallbladder ejection fraction is abnormally low at 9%, normal is 30. Findings are suspicious for biliary dyskinesia, surgical consultation recommended Electronically Signed: Lester Sinclair MD at 11:11 EST , Charges/Coding Visit Charges Inpatient E&M: 61545 Init Hosp L3
[2023-07-02] MEDS: Pantoprazole Sodium 40 MG in 0.9% Normal Saline (100mL MB+) 100 ML 330 MG IV ×2 (14:00→21:17)
[2023-07-02] MEDS: Buprenorphine HCl 2 MG TAB.SUBL 1 MG SL (15:01)
--- NOTE | 2023-07-02 15:43 | CASEMGMT ---
WILFREDO SHANE Assessment Face to Face with patient for initial transition planning/care coordination assessment. WILFREDO SHANE introduced self and role at [facility], pt voices understanding. Pt resting comfortably in bed and is calm. Pt is A&Ox4 and is willing to answer questions at this time. Care providers, pharmacy, and demographics verified. Admitting dx: RUQ ABD Pain LACE Strata: 1 PCP: NO PCP. List provided. Specialists: Pt states she has seen a GI specialist 2 years ago but could not recall the name or the facility. Preferred Pharmacy: [facility] Insurance: [facility] Community Plan CHRISTINE. Pt states this will at the end of the month and will be starting a new plan at the beginning of the year. Prescription Benefit: Yes LNOK: Aye Chou (Mother) Living Arrangements: Pt states living in a 1 story split home with 5 steps to enter. Pt lives with her 17 y/o son and 3 dogs. Pt states there are hand rails for the steps. Pt denies issues with steps. States independence with ADLs and IADLs. Transportation:Pt Drives DME: Denies HHC/SNF: Denies history Pt?s goal/plan: Pt goal is to DC home with her son after her surgery and time at the hospital. Pt denies any further needs or questions at the time of assessment. Red Ng RN, CM
[2023-07-02] MEDS: Acetaminophen 325 MG Tablet 650 MG PO (16:20)
[2023-07-02] MEDS: cloNIDine HCl 0.1 MG Tablet 0.100000000000000006 MG PO (21:17)
[2023-07-03] VITALS (13 sets, daily range): BP systolic 105–153; BP diastolic 62–92; PULSE 58–97; RESP 16–26; TEMP 36.5–37.3; O2SAT 95–100; BMI 23.5
--- NOTE | 2023-07-03 | GALL_PTH ---
PATHOLOGY RESULTS PATIENT: NADINE SILVEIRA LOC: MS3 U#:[id number] AGE/SX: 42/F [place] [facility]: Dr. Jose Raul Shook MD : 1980 BED: 1 DIS: 07/03/2023 SPEC #: [id number] RECD: 07/03/23 12:35 STATUS: NEDA RERoshan #: [id number] GABRIEL: 07/03/23 00:[address]: Kiarra Abreu DEPT: SURGICAL PATHOLOGY RECD BY: Maddie Bradshaw ENTERED: 07/03/23 12:36 SP TYPE: GALLBLADDE OTHR DR: DO Dr. Jose Raul Smith MD Dr. Tamera Robotham, MD No Primary Care Phys Tissues: Gallbladder, NOS Skin, NOS Procedures: Surgery Specimen Level III Surgery Specimen Level IV Comments: @ Ordering doctor for SUIII edited from to @ by JUWAN at 07/03/23 1511 @ Submitting doctor edited from to @ by RGOOD at 07/03/23 1511 HEADER OPERATION: Laparoscopic cholecystectomy with IOC, skin tag removal PRE-OP DIAGNOSIS: Thickening of wall of gallbladder with pericholecystic fluid, abnormal chest CT scan, abdominal pain TISSUE SUBMITTED: A - Gallbladder, B - Skin tag MICROSCOPIC DIAGNOSIS A. Gallbladder, cholecystectomy: Mild chronic cholecystitis. See comment. Javier Skin tag, excisional biopsy: Benign vascular proliferation, capillary hemangioma. SJ:ta 07/07/2023 COMMENT A. No stones are identified in the container or in the gallbladder. MICROSCOPIC DESCRIPTION Slides are reviewed. GROSS DESCRIPTION A - Received is one container labeled with the patient's name and designated gallbladder. The specimen consists of a gallbladder measuring 7.5 cm in length and 3.5 cm in diameter. The external surface is pink-vargas, smooth and glistening for the most part. Focally it is granular, hemorrhagic and contains cautery artifact. The gallbladder contains green-yellow mucoid bile. A small amount of sludge material is noted. No stones are identified in the container or in the gallbladder. The mucosa is bile-stained and without any mass lesions. The gallbladder wall measures up to 0.2 cm in thickness. Regional Account Executive sections from the gallbladder and the cystic duct are submitted in one cassette. B - Received in fixative is one container labeled with the patient's name and designated skin tag. The specimen consists of a polypoid piece of vargas-brown skin measuring 0.5 x 0.4 x 0.3 cm. The specimen is inked, bisected and submitted entirely in one cassette. / SJ:rg 07/03/2023 TC:1 CPT: 82196, 18124
[2023-07-03 06:09] LABS: HEPATITIS B SURFACE AG Negative (Negative); Hep C Antibodies Non Reactive (Non Reactive); Hepatitis A IgM Antibody Negative (Negative); Hepatitis B Core AB IgM Negative (Negative)
--- NOTE | 2023-07-03 06:35 | EKG12_ITS ---
Test Reason : PRE OP Blood Pressure : / mmHG Vent. Rate : 075 BPM Atrial Rate : 075 BPM P-R Int : 136 ms QRS Dur : 074 ms QT Int : 382 ms P-R-T Axes : 002 025 066 degrees QTc Int : 426 ms Normal sinus rhythm Normal ECG No previous ECGs available Confirmed by JONNATHAN ALDANA, ANURAG ([id number]), editorial specialist JOE RODRIGUEZ ([id number]) on 07/14/2023 10:18:20 AM Referred By: KILO Confirmed By:ANURAG DE SANTIAGO MD
[2023-07-03] MEDS: Lactated Ringers 1,000 ML 15 ML IV (06:57)
--- NOTE | 2023-07-03 07:25 | RAD_ITS ---
STUDY: INTRAOPERATIVE CHOLANGIOGRAM. REASON FOR EXAM: Female, 42 years old. LAP FELIPE WITH IOC WITH POSSIBLE LIVER BIOPSY FLUOROSCOPY TIME (if supplied): ( 4 seconds ) minutes/seconds. 0.76 mGy TECHNIQUE: An intraoperative cholangiogram was performed by the surgeon. Imaging was provided. COMPARISON: None. FINDINGS: Normal study. RAD/Cholangiogram/ O R,Initial IMPRESSION: Normal study. Electronically Signed: Chay Badillo MD at 10:30 EST ,
[2023-07-03] MEDS: Cefazolin 2 GM in 0.9% Normal Saline (100mL Bag) 100 ML IV (07:44)
[2023-07-03] MEDS: Bupivacaine Mpf 0.5% 30 ML VIAL (08:34)
--- NOTE | 2023-07-03 08:44 | OP.PCM_ITS ---
Report of Operation Date of Procedure: 07/03/23 Pre-Operative Diagnosis: Biliary dyskinesia Post-Operative Diagnosis: Same Surgery/Procedure Performed:: Laparoscopic cholecystectomy with cholangiograms Surgeon: Kiarra Abreu Type of Anesthesia: General/Supplemental Anesthesiologist: Devin Lassiter Special Medications: Ancef 2 g IV x 1 Specimen's removed: Gallbladder Estimated Blood Loss (mL): 15 CC Description of Procedure: Indications: this is a 42 year-old female who developed abdominal pain/ nausea/vomiting and on workup was found to have biliary dyskinesia, thickening of the gallbladder wall, with a normal common bile duct, LFTs. Laparoscopic cholecystectomy was elected. Description procedure: The patient was placed on operating table in supine position. A timeout was completed verifying correct patient, procedure, site, position and special equipment prior to beginning procedure. General Anesthesia was induced. The abdomen was prepped and draped in usual sterile fashion. An incision was made in the natural skin line below the umbilicus. The fascia was elevated and incised. The peritoneum was elevated and incised. Entry into the peritoneum was confirmed visually and no bowel was noted in the vicinity of the incision. Lara trocar was placed. The abdomen was insufflated with carbon dioxide to a pressure of 12-15 mmHg. Patient tolerated insufflation well. The laparoscope was then inserted and abdomen inspected. No injuries from initial trocar placement were noted. Additional trochars were then inserted in the following locations 5 mm trocar in the epigastrium and 2 more 5 mm trochars along the right costal margin. The abdomen was inspected no abnormalities were found. The table is placed in reverse Trendelenburg position with the right side up. The dome of the gallbladder was grasped with atraumatic grasper passed through the lateral port and retracted over the dome of the liver. Infundibulum was then grasped with atraumatic grasper through the midclavicular port and retracted to the right lower quadrant. This maneuver exposed Calot's triangle. The peritoneum overlying the gallbladder infundibulum was then incised and cystic duct and artery identified and circumferentially dissected. Ulrich catheter was used for cholangiograms. The cholangiogram showed good filling of the common bile duct into the duodenum with no filling defects, good filling of the right and left bile ducts as well. The cystic duct and artery were then doubly clipped and divided close to the gallbladder. The gallbladder then dissected from its peritoneal attachments by electrocautery. Hemostasis was checked and the gallbladder was removed using the endoscopic retrieval bag through the umbilical port. The gallbladder is passed off table as specimen. The gallbladder fossa was irrigated with saline and hemostasis obtained. There is no evidence of bleeding from the gallbladder fossa or cystic artery leakage of bile from the cystic duct stump. Secondary trochars removed under direct vision. No bleeding was noted the trocar sites. The laparoscope was withdrawn and umbilical trocar removed. The abdomen was allowed to collapse. The fascia of the 12 mm trocar was closed with a [id number] 0 Vicryl suture. The skin was closed with sutures of 4-0 Monocryl and Steri-Strips. The patient was extubated. The patient tolerated procedure well and was taken to the postanesthesia care unit in stable condition. Complications none
[2023-07-03] MEDS: Buprenorphine HCl 2 MG TAB.SUBL SL (10:03)
[2023-07-03] MEDS: Lactated Ringers 1,000 ML 100 ML IV (10:04)
[2023-07-03] MEDS: Ketorolac 15 MG/ML Vial IV ×2 (10:52→16:54)
[2023-07-03] MEDS: 0.9% Saline Lock 10 ML Syringe IV (10:53)
[2023-07-03] MEDS: Pantoprazole Sodium 40 MG in 0.9% Normal Saline (100mL MB+) 100 ML 330 MG IV (11:00)
[2023-07-03] MEDS: Acetaminophen 325 MG Tablet 650 MG PO ×2 (11:00→16:54)
--- NOTE | 2023-07-03 11:30 | DCINST_ITS ---
Discharge Instructions Diet Discharge Diet: Light diet - advance as tolerated Activity Discharge Activity: Return to Normal Activity May shower in (days): 1 Weight Bearing Status: Weight bearing as tolerated Dressing / Incision Call your doctor if your incision/area has: Continuous Slow Oozing, Sudden Increased Bleeding, Increased Pain/ Swelling, Increased Redness, Foul Smelling Discharge and Swelling at the incision site Call your doctor if you observe: Fever of 101 or Higher, Coldness, Increased Pain, Numbness or Tingling, Change in Color, Inability to urinate, Inability to have a bowel movement, Using more than 1 pad per hour, Shortness of breath, Dizziness, Fainting spells, Swelling in the ankles, Chest pain, Prolonged hiccupping, Increased palpitations (irregular heartbeat), Calf discomfort and Uncontrolled pain Cleanse incision/area with: Soap & Water Additional Dressing/Incision Instructions:: Steri-Strips will fall off in 7 to 10 days, if they do not fall off okay to remove after 10 days. Follow Up Care Please Follow Up With: Kiarra Abreu MD When: IN 2 WEEKS Test Results: Test results from this visit will be discussed in further detail at your follow- up appointment, if applicable. Discharge Plan Admission Admit Date/Time: 07/01/23 17:02 Primary Reason for Your Visit: acute cholecystitis Attending Provider: Jose Raul Shook Primary Care Provider: Care Physician,No Primary Consulting Providers: Nydia Harris; Kiarra Abreu Discharge Orders/Prescriptions Prescriptions: New sennosides-docusate sodium [Stool Softener-Stimulant Laxat] 8.6-50 mg Tablet 2 tab PO BID PRN PRN (Reason: Constipation) Qty: 0 0RF Rx Instructions: OTC tramadol 50 mg tablet 50 mg PO Q6H PRN (Reason: pain) Qty: 14 0RF ondansetron 4 mg tablet,disintegrating 4 mg PO Q6H PRN (Reason: nausea and vomiting) Qty: 30 0RF Continued famotidine 40 mg tablet 40 mg PO DAILY buprenorphine-naloxone 2-0.5 mg film 0.5 film buccal DAILY clonidine HCl 0.1 mg tablet 0.1 mg PO QHS medroxyprogesterone 150 mg/mL suspension 150 mg IM Q90D Rx Instructions: inject 1 milliliter intramuscularly every 3 MONTHS sucralfate [Carafate] 1 gram tablet 1 g PO Q6H Qty: 60 0RF Rx Instructions: Follow-up with PCP Referrals / Follow Up: Care Physician,No Primary [Primary Care Provider] - Kiarra Abreu MD [Med Staff - Active Staff] - Within 2 Weeks Disposition Disposition (needs filled in before D/C Order can be placed): Home, Self Care
--- NOTE | 2023-07-03 12:15 | DCINST_ITS ---
Discharge Instructions Diet Discharge Diet: Light diet - advance as tolerated Activity Discharge Activity: May Not Drive (If having too much pain and cannot slam on the brakes) May shower in (days): 1 Lifting Restrictions: no lifting >20 lbs x 2 wks, no strenuous exercise for 4 wks Dressing / Incision Call your doctor if your incision/area has: Continuous Slow Oozing, Sudden In creased Bleeding, Increased Pain/ Swelling, Increased Redness, Foul Smelling Discharge and Swelling at the incision site Call your doctor if you observe: Fever of 101 or Higher Remove Dressing in: 2 days Cleanse incision/area with: Soap & Water Additional Dressing/Incision Instructions:: Steri-Strips will fall off in 7 to 10 days, if they do not fall off okay to remove after 10 days. Follow Up Care Please Follow Up With: Kiarra Abreu MD When: Call the office for a follow-up appointment 2 weeks; after 5 PM and on the weekends call [phone] with any concerns. Test Results: Test results from this visit will be discussed in further detail at your follow- up appointment, if applicable. Discharge Plan Admission Admit Date/Time: 07/01/23 17:02 Attending Provider: Jose Raul Shook Primary Care Provider: Care Physician,No Primary Consulting Providers: Nydia Harris; Kiarra Abreu Discharge Orders/Prescriptions Prescriptions: No Action sucralfate [Carafate] 1 gram tablet 1 g PO Q6H Qty: 60 0RF famotidine 40 mg tablet 40 mg PO DAILY buprenorphine-naloxone 2-0.5 mg film 0.5 film buccal DAILY clonidine HCl 0.1 mg tablet 0.1 mg PO QHS medroxyprogesterone 150 mg/mL suspension 150 mg IM Q90D Rx Instructions: inject 1 milliliter intramuscularly every 3 MONTHS Referrals / Follow Up: Care Physician,No Primary [Primary Care Provider] -
--- NOTE | 2023-07-03 13:00 | EX.PCM.PN.GI ---
Subjective Subjective Patient is feeling a lot better today. She status post cholecystectomy without any complications. Objective Data Objective Data Vital Signs: Vital Signs Temp Pulse Resp BP Pulse Ox O2 Del Method O2 Flow Rate 99.1 F 97 22 H 121/80 H 97 Room Air 2 07/03/23 13:07 07/03/23 13:07 07/03/23 13:07 07/03/23 13:07 07/03/23 13:07 07/03/23 13:07 07/03/23 10:36 Oxygen Flow Rate (L/min) 2 Oxygen Delivery Method Room Air Weight: 124 lb 5.451 oz Body Mass Index (BMI) 23.5 Intake & Output: Intake and Output for Last 24 Hours 07/01/23 07/02/23 07/03/23 23:59 23:59 23:59 Intake Total 110 / 460 2495.00 / 2735.00 2652.83 / 2652.83 Balance 110 / 460 2495.00 / 2735.00 2652.83 / 2652.83 Lab / Micro Data 07/02/23 06:15 07/02/23 06:15 Labs: Laboratory Results - last 24 hr 07/01/23 17:50: Hepatitis A IgM Ab Negative, Hep Bs Antigen Negative, Hep B Core IgM Ab Negative, Hepatitis C Ab (EIA) Non Reactive, Hep C Ab Comment Comment Radiography Diagnostic Testing: Radiology Impression Cholangiogram 07/03/23 07:25 IMPRESSION: Normal study. Electronically Signed: Chay Badillo MD at 10:30 EST , Physical Exam Narrative Seen and examined. . Physical exam General: Alert, Oriented x3, Cooperative HEENT: Atraumatic, PERRLA, EOMI, Normocephalic Oral: No Gingival or Mucosal Lesions/ Ulcerations Neck: Supple, No JVD, Negative Carotid Bruits Lungs: Air entry diminished in bilateral lung bases. No crepitation/rhonchi Cardiovascular: Regular rate, Regular Rhythm, Normal S1, Normal S2, No murmurs Abdomen: Steri-Strips present over the ports dressing. Bowel sounds sluggish. Postop tenderness present. : No renal angle tenderness. No suprapubic tenderness. Extremities: No edema, Capillary Refill Less than 3 Seconds Skin: No rashes, No breakdown Musculoskeletal: No Tenderness to Palpation of Joints or Extremities Neurological: Cranial nerves II-XII grossly intact, DTR 2+/4. No acute focal neurological deficit. Psych/Mental Status: Normal Affect, Appropriate. Assessment & Plan Assessment/Plan (1) Thickening of wall of gallbladder with pericholecystic fluid: (2) Abnormal CT scan, chest: (3) Abdominal pain: QUALIFIERS: Abdominal location: epigastric Qualified Code(s): R10.13 - Epigastric pain PLAN: Plan She was admitted for abdominal pain mainly RUQ/epigastric pain for about 1 week. Patient complains of pain after eating mainly in epigastric and right upper quadrant region for about 1 week. Pain persist even after 7-8 hours after eating. No fever. The right upper quadrant and epigastric abdominal pain most likely due to biliary dyskinesia: The patient is being admitted to [facility]. Had extensive workup including liver ultrasound, CT abdomen, MRCP, HIDA scan And then EGD. All the scans showed acalculus cholecystitis with mild GB wall thickening, small pericholecystic fluid. HIDA scan after cholecystokinin injection shows GB ejection fraction abnormally low 9% normal is 30%. MRCP shows no obvious obstructing stone mass or stricture. Patient EGD was essentially normal except erythematous duodenopathy. The significance and the cause of periportal edema unclear manage patient does not have fever. There was no leukocytosis. CRP and ESR elevated. ALT AST on lower side. Alkaline phosphatase low. Total bilirubin normal. Hepatitis profile and HIV from 2014 are negative. Recent hepatitis profile negative but I gastric total bili normal. Patient had lap gabriel with cholangiogram today. Cholangiogram showed good filling of the common bile duct into the duodenum with no filling defect. Good filling of the right and left hepatic ducts. Patient is still nauseous and abdominal pain. Surgeon IS okay for discharge in the evening but will see if patient can tolerate pain. She can be discharged from GI standpoint.
--- NOTE | 2023-07-03 14:13 | PCM.PN.HOSP ---
Reason for Visit Reason for Visit: Diagnoses Other specified diseases of gallbladder (07/01/23) Epigastric pain (07/01/23) Unspecified abdominal pain (07/01/23) Abnormal findings on diagnostic imaging of other specified body structures (07/01/23) Objective Data Objective Data Vital Signs: Vital Signs Temp Pulse Resp BP Pulse Ox O2 Del Method O2 Flow Rate 99.1 F 97 22 H 121/80 H 97 Room Air 2 07/03/23 13:07 07/03/23 13:07 07/03/23 13:07 07/03/23 13:07 07/03/23 13:07 07/03/23 13:07 07/03/23 10:36 Oxygen Flow Rate (L/min) 2 Oxygen Delivery Method Room Air Weight: 124 lb 5.451 oz Body Mass Index (BMI) 23.5 Intake & Output: Intake and Output for Last 24 Hours 07/01/23 07/02/23 07/03/23 23:59 23:59 23:59 Intake Total 110 / 460 2495.00 / 2735.00 1676.25 / 1676.25 Balance 110 / 460 2495.00 / 2735.00 1676.25 / 1676.25 Lab / Micro Data 07/02/23 06:15 07/02/23 06:15 Labs: Laboratory Results - last 24 hr 07/01/23 17:50: Hepatitis A IgM Ab Negative, Hep Bs Antigen Negative, Hep B Core IgM Ab Negative, Hepatitis C Ab (EIA) Non Reactive, Hep C Ab Comment Comment Radiography Diagnostic Testing: Radiology Impression Cholangiogram 07/03/23 07:25 IMPRESSION: Normal study. Electronically Signed: Chay Badillo MD at 10:30 EST , Physical Exam Narrative Seen and examined. Patient had lap gabriel with cholangiogram in the morning. Currently patient feels abdominal sore and nauseous. IV Zofran given. Physical exam General: Alert, Oriented x3, Cooperative HEENT: Atraumatic, PERRLA, EOMI, Normocephalic Oral: No Gingival or Mucosal Lesions/ Ulcerations Neck: Supple, No JVD, Negative Carotid Bruits Lungs: Air entry diminished in bilateral lung bases. No crepitation/rhonchi Cardiovascular: Regular rate, Regular Rhythm, Normal S1, Normal S2, No murmurs Abdomen: Steri-Strips present over the ports dressing. Bowel sounds sluggish. Postop tenderness present. : No renal angle tenderness. No suprapubic tenderness. Extremities: No edema, Capillary Refill Less than 3 Seconds Skin: No rashes, No breakdown Musculoskeletal: No Tenderness to Palpation of Joints or Extremities Neurological: Cranial nerves II-XII grossly intact, DTR 2+/4. No acute focal neurological deficit. Psych/Mental Status: Normal Affect, Appropriate. Assessment & Plan Assessment/Plan (1) Thickening of wall of gallbladder with pericholecystic fluid: (2) Abnormal CT scan, chest: (3) Abdominal pain: QUALIFIERS: Abdominal location: epigastric Qualified Code(s): R10.13 - Epigastric pain PLAN: Plan Continue all female being admitted for abdominal pain mainly RUQ/epigastric pain for about 1 week.Patient complains of pain after eating mainly in epigastric and right upper quadrant region for about 1 week. Pain persist even after 7-8 hours after eating. No fever. . Right upper quadrant and epigastric abdominal pain most likely due to biliary dyskinesia: [facility] Had extensive workup including liver ultrasound, CT abdomen, MRCP, HIDA scan And then EGD. All the scans showed acalculus cholecystitis with mild GB wall thickening, small pericholecystic fluid. HIDA scan after cholecystokinin injection shows GB ejection fraction abnormally low 9% normal is 30%. The patient history also consistent with abdominal pain after eating. It also shows periportal edema. Liver is well-controlled. MRCP shows no obvious obstructing stone mass or stricture. Patient EGD was essentially normal except erythematous duodenopathy. The significance and the cause of periportal edema unclear manage patient does not have fever. Color Doppler of portal vein would have been important but we do not have in [facility]. Patient seen by GI and surgeon. No leukocytosis. CRP and ESR elevated. ALT AST on lower side. Alkaline phosphatase low. Total bilirubin normal. Hepatitis profile and HIV from 2013 are negative. Recent hepatitis profile negative but I gastric total bili normal. PPI once daily. Pain control. 07/03: Patient had lap gabriel with cholangiogram today. Cholangiogram showed good filling of the common bile duct into the duodenum with no filling defect. Good filling of the right and left hepatic ducts. Patient is still nauseous and abdominal pain. Surgeon IS okay for discharge in the evening but will see if patient can tolerate pain 2.Abnormal CT of lower lung go -Would recommend outpatient follow-up with CT of the chest after discharge -This was discussed with the patient on admission 3. Hypertension -Continue home clonidine GERD -Hold home famotidine -IV Protonix 40 mg twice daily History of opiate abuse -Continue home buprenorphine History of tobacco abuse -Remote -Recommend ongoing cessation DVT prophylaxis -Lovenox CODE STATUS Full code Charges/Coding Visit Charges Inpatient E&M: 49788 Subs Hosp L2
--- NOTE | 2023-07-03 14:22 | DS.PCM_ITS ---
Providers Date of Admission: 07/01/23 Date of Discharge: 07/03/23 Primary Care Physician: Ranjana Primary [facility] Phys Consultations 07/01/23 19:41 Consult: Gastroenterology Routine Consulting Provider: [facility] Reason for Consult: abdominal pain EMERGENT Consult: No Notified: Yes Date Notified: 07/01/23 Time Notified: 17:05 Method of Notification: Verbal 07/02/23 13:01 Consult: General Surgery Routine Consulting Provider: Kiarra Abreu Reason for Consult: RUQ pain, biliary dyskinesia EMERGENT Consult: No Notified: Yes Date Notified: 07/02/23 Time Notified: 13:01 Method of Notification: Verbal Reason For Visit: ABDOMINAL PAIN RUQ Diagnosis Discharge Diagnosis (1) Thickening of wall of gallbladder with pericholecystic fluid: Status: Acute Code(s): K82.8 - Other specified diseases of gallbladder (2) Abnormal CT scan, chest: Status: Acute Code(s): R93.89 - Abnormal findings on diagnostic imaging of other specified body structures (3) Abdominal pain: Status: Acute Code(s): R10.9 - Unspecified abdominal pain Qualifiers: Abdominal location: epigastric Qualified Code(s): R10.13 - Epigastric pain Plan Continue all female being admitted for abdominal pain mainly RUQ/epigastric pain for about 1 week.Patient complains of pain after eating mainly in epigastric and right upper quadrant region for about 1 week. Pain persist even after 7-8 hours after eating. No fever. . Right upper quadrant and epigastric abdominal pain most likely due to biliary dyskinesia: [facility] Had extensive workup including liver ultrasound, CT abdomen, MRCP, HIDA scan And then EGD. All the scans showed acalculus cholecystitis with mild GB wall thickening, small pericholecystic fluid. HIDA scan after cholecystokinin injection shows GB ejection fraction abnormally low 9% normal is 30%. The patient history also consistent with abdominal pain after eating. It also shows periportal edema. Liver is well-controlled. MRCP shows no obvious obstructing stone mass or stricture. Patient EGD was essentially normal except erythematous duodenopathy. The significance and the cause of periportal edema unclear manage patient does not have fever. Color Doppler of portal vein would have been important but we do not have in [facility]. Patient seen by GI and surgeon. No leukocytosis. CRP and ESR elevated. ALT AST on lower side. Alkaline phosphatase low. Total bilirubin normal. Hepatitis profile and HIV from 2014 are negative. Recent hepatitis profile negative but I gastric total bili normal. PPI once daily. Pain control. 07/03: Patient had lap gabriel with cholangiogram today. Cholangiogram showed good filling of the common bile duct into the duodenum with no filling defect. Good filling of the right and left hepatic ducts. Patient patient has postop nausea and soreness around 11:00. Later on she felt better and wants to go home in the evening. Prescription for tramadol and Zofran given. OARRS reviewed and is NARx score 0. Patient states that she is on Suboxone for remote history of opioid use and is sober. Tramadol semisynthetic opioid and advised only for severe pain, 7 to 10 days less intense intensity. I advised to check with her Suboxone prescriber/opioid coordinator and notify her that she is given prescription for tramadol. I believe the tramadol should not cause opioid withdrawal with Suboxone. She cannot take Tylenol and Motrin 600 mg every 8 hourly as needed for [id number]-hr-bchyrvdl pain. 2.Abnormal CT of lower lung go -Would recommend outpatient follow-up with CT of the chest after discharge -This was discussed with the patient on admission. Follow with PCP Need outpatient CT for follow-up. 3. Hypertension -Continue home clonidine GERD -Hold home famotidine -IV Protonix 40 mg twice daily History of opiate abuse -Continue home buprenorphine History of tobacco abuse -Remote -Recommend ongoing cessation DVT prophylaxis -Lovenox CODE STATUS Full code Discharge medication reconciliation done. Discharge follow-up instructions completed. Discharge process discussed with the patient and all questions were answered to patient's satisfaction. Follow with PCP in 1 to 2 weeks Total time spent, exact 35 minutes on discharge meds reconciliation, examination, coordination of care with nurses and ancillary staff, review of imaging and blood test and discussion with the patient on follow-up instruction s. Medications at Discharge Home Medications buprenorphine 2 mg-naloxone 0.5 mg sublingual film 0.5 film buccal DAILY withdrawal 07/01/23 clonidine HCl 0.1 mg tablet 0.1 mg PO QHS blood pressure 07/01/23 famotidine 40 mg tablet 40 mg PO DAILY acid reflux 12/20/23 medroxyprogesterone 150 mg/mL intramuscular suspension 150 mg IM Q90D control 07/01/23 ondansetron 4 mg disintegrating tablet 4 mg PO Q6H PRN nausea and vomiting #30 tabs 07/03/23 sennosides 8.6 mg-docusate sodium 50 mg tablet (Stool Softener-Stimulant Laxative) 2 tab PO BID PRN PRN Constipation #0 tabs 07/03/23 sucralfate 1 gram tablet (Carafate) 1 g PO Q6H stomach ulcers #60 tabs 07/03/23 tramadol 50 mg tablet 50 mg PO Q6H PRN pain #14 tabs 07/03/23 Physical Exam Narrative See the progress note. Weight / BMI Weight Weight: 124 lb 5.451 oz Body Mass Index (BMI) 23.5 ABG / Lab / Microbiology Data 07/02/23 06:15 07/02/23 06:15 Laboratory: Laboratory Results - last 24 hr 07/01/23 17:50: Hepatitis A IgM Ab Negative, Hep Bs Antigen Negative, Hep B Core IgM Ab Negative, Hepatitis C Ab (EIA) Non Reactive, Hep C Ab Comment Comment Radiography Diagnostic Testing: Radiology Impression Cholangiogram 07/03/23 07:25 IMPRESSION: Normal study. Electronically Signed: Chay Badillo MD at 10:30 EST Reading Location ID and State: [address] [place] [address] , Service support , D/C Instructions Discharge Diet: Light diet - advance as tolerated May shower in (days): 1 Weight Bearing Status: Weight bearing as tolerated Call your doctor if your incision/area has: Continuous Slow Oozing, Sudden Increased Bleeding, Increased Pain/ Swelling, Increased Redness, Foul Smelling Discharge and Swelling at the incision site Call your doctor if you observe: Fever of 101 or Higher, Coldness, Increased Pain, Numbness or Tingling, Change in Color, Inability to urinate, Inability to have a bowel movement, Using more than 1 pad per hour, Shortness of breath, Dizziness, Fainting spells, Swelling in the ankles, Chest pain, Prolonged hiccupping, Increased palpitations (irregular heartbeat), Calf discomfort and Uncontrolled pain Cleanse incision/area with: Soap & Water Additional Dressing/Incision Instructions: Steri-Strips will fall off in 7 to 10 days, if they do not fall off okay to remove after 10 days. Please Follow Up With: Kiarra Abreu MD When: IN 2 WEEKS Meaningful Use Info Meaningful Use Diagnoses (Choose all that apply): None applicable Discharge Plan Admission Admit Date/Time: 07/01/23 17:02 Primary Reason for Your Visit: acute cholecystitis Attending Provider: Jose Raul Shook Primary Care Provider: Care Physician,No Primary Consulting Providers: Nydia Harris; Kiarra Abreu Discharge Orders/Prescriptions Prescriptions: New sennosides-docusate sodium [Stool Softener-Stimulant Laxat] 8.6-50 mg Tablet 2 tab PO BID PRN PRN (Reason: Constipation) Qty: 0 0RF Rx Instructions: OTC tramadol 50 mg tablet 50 mg PO Q6H PRN (Reason: pain) Qty: 14 0RF ondansetron 4 mg tablet,disintegrating 4 mg PO Q6H PRN (Reason: nausea and vomiting) Qty: 30 0RF Continued famotidine 40 mg tablet 40 mg PO DAILY buprenorphine-naloxone 2-0.5 mg film 0.5 film buccal DAILY clonidine HCl 0.1 mg tablet 0.1 mg PO QHS medroxyprogesterone 150 mg/mL suspension 150 mg IM Q90D Rx Instructions: inject 1 milliliter intramuscularly every 3 MONTHS sucralfate [Carafate] 1 gram tablet 1 g PO Q6H Qty: 60 0RF Rx Instructions: Follow-up with PCP Referrals / Follow Up: Kiarra Abreu MD [Med Staff - Active Staff] - Within 2 Weeks Care Physician,No Primary [Primary Care Provider] - Disposition Disposition (needs filled in before D/C Order can be placed): Home, Self Care Charges/Coding Addendum Addendum: Cancel the billing charge of the progress note below. Visit Charges Inpatient E&M: 21360 Disch Hosp >30min
== END 2023-07-03 17:11 | disposition home or self-care (01) | DRG 263 ==
LOC: ED 14:02 → MS3 07-02 07:35
PROVIDERS: Internal Medicine Gastroenterology; Surgery; Admitting Provider Internal Medicine; Emergency Provider Student in an Organized Health Care Education/Training Program; Visit Provider Internal Medicine
PROC: 0DJ08ZZ Inspection of Upper Intestinal Tract, Via Natural or Artificial Opening Endoscopic (ICD-10-PCS; CPT 43235; principal; 2023-07-02 11:55)
PROC: (CPT 47610; principal; 2023-07-03 07:10)
DX: F11.11 Opioid abuse, in remission (principal); K81.1 Chronic cholecystitis; I10 Essential (primary) hypertension; K31.89 Other diseases of stomach and duodenum; K21.9 Gastro-esophageal reflux disease without esophagitis; D18.01 Hemangioma of skin and subcutaneous tissue; R91.8 Other nonspecific abnormal finding of lung field; Z90.49 Acquired absence of other specified parts of digestive tract; Z79.899 Other long term (current) drug therapy; Z87.891 Personal history of nicotine dependence
CPT/HCPCS: 47563; 43239; 00790; J2405; 36415; 74177; 74181; 74300; 76000; 76705; 78227; 80048; 80053; 80074; 80076; 81025; 83690; 83735; 84100; 84443; 84703; 85025; 85652; 86140; 88304; 88305; 93005; 94668; 96361; 96365; 96366; 96374; 96375; 96376; 99221; 99283; 99284; A9537; J7030; J7120; Q9967; A4216; G0378; J2805; J3490